=== PATIENT | female | born 1960 | race Two or more races ===

== ENCOUNTER 2024-09-22 08:09 | Outpatient (REF) | payer MEDICARE, MEDICAID, SELFPAY ==
--- NOTE | ~2024-09-22 | XR_ITS ---
CLINICAL HISTORY: E66.9 - Obesity, unspecified 2 view chest x-ray Comparison: None Findings: The lungs are clear. Heart size is normal. Right superior mediastinal convexity is present. No acute fracture. IMPRESSION: Right superior mediastinal convexity, which may be secondary to aortic aneurysm. Recommend CT chest for further evaluation. This document has been electronically signed by: Nayla Duarte on 09/26/2024 09:18:48
[2024-09-22 08:58] LABS: MANUAL DIFF FLAG NO
--- NOTE | 2024-09-22 09:10 | ECG_ITS ---
Test Reason : OBS Blood Pressure : */* mmHG Vent. Rate : 76 BPM Atrial Rate : 76 BPM P-R Int : 170 ms QRS Dur : 86 ms QT Int : 364 ms P-R-T Axes : 37 51 69 degrees QTcB Int : 409 ms Normal sinus rhythm Normal ECG No previous ECGs available Referred By: Wai Huang Electronically Signed By: Iban Vasques
[2024-09-22 09:12] LABS: Basophils Absolute Auto 0.1 X10*3/uL (0.0-0.2); Basophils Percent Auto 1.1 % (0-2); Eosinophils Absolute Auto 0.2 X10*3/uL (0.0-0.4); Eosinophils Percent Auto 2.3 % (0-4); Hematocrit 42.4 % (37.0-47.0); Hemoglobin 14.2 g/dl (12.0-16.0); Imm Gran Abs Auto 0.03 X10*3/uL (0.00-0.03); Imm Gran Pct Auto 0.4 % (0.0-0.4); Lymphocytes Absolute Auto 2.6 X10*3/uL (1.2-4.9); Lymphocytes Percent Auto 32.1 % (20-40); Mean Corpuscular HGB Conc 33.5 g/dl (31.0-35.0); Mean Corpuscular Volume 86.7 fL (80.0-98.0); Monocytes Absolute Auto 0.4 X10*3/uL (0.1-1.2); Monocytes Percent Auto 4.9 % (2-11); Neutrophils Absolute Auto 4.8 x10*3/uL (2.0-8.3); Neutrophils Percent Auto 59.2 % (45-73); Platelet Count 292 X10*3/uL (160-400); Red Blood Count 4.89 X10*6/uL (4.20-5.50); Red Cell Distribution Width 12.9 % (11.0-16.0); White Blood Count 8.2 X10*3/uL (4.8-10.8)
[2024-09-22 09:17] LABS: Estimated Average Glucose 126 mg/dL; Hemoglobin A1C 156.8877 umol/L; Total Hemoglobin (HGBA1C) 3758.2814 umol/L
[2024-09-22 09:52] LABS: Alanine Aminotransferase 48 U/L (0-31); Anion Gap 14 (12-20); Aspartate Amino Transferase 42 U/L (5-31); Bilirubin Total 0.5 mg/dL (0.0-1.0); Blood Urea Nitrogen 20 mg/dL (9-16); C Reactive Protein 1.12 mg/dL (< or = 0.50); Calcium 9.7 mg/dL (8.4-10.2); Carbon Dioxide 27 mmol/L (22-29); Chloride 102 mmol/L (96-108); Cholesterol 169 mg/dL (<200); Estimated Glomerular Filt Rate > 60; Glucose Random 178 mg/dL (60-115); HDL Cholesterol 45 mg/dL (>40); Iron 51 mcg/dL (30-160); LDL Cholesterol Calculated 103 mg/dL (<100); Percent Iron Saturation 18 % (15-50); Sodium 139 mmol/L (135-145); Total Iron Binding Capacity 284 mcg/dL (228-428); Total Protein 7.8 g/dL (6.5-8.0); Triglycerides 107 mg/dL (<150); Unsaturated Iron Binding 233 ug/dL
[2024-09-22 10:09] LABS: Alkaline Phosphatase 96 U/L (39-117); Vitamin B12 721 pg/mL (200-900)
[2024-09-22 10:20] LABS: Ferritin 101 ng/mL (10-250); TSH reflex Free T4 3.93 uIU/mL (0.32-4.0); Vitamin D 25-OH Total 36.2 ng/mL (>30)
[2024-09-22 10:52] LABS: Insulin 184 uU/mL (2-29)
[2024-09-25 17:23] LABS: Zinc 68 mcg/dL (60-130)
[2024-09-25 18:33] LABS: Vitamin A 45 mcg/dL (38-98)
[2024-09-27 16:28] LABS: Vitamin B1 13 nmol/L (8-30)
== END 2024-09-22 08:10 | disposition home or self-care (01) ==
LOC: HO.XRAY 08:09
PROVIDERS: Visit Provider Surgery
DX: E66.9 Obesity, unspecified (principal); G47.30 Sleep apnea, unspecified; Z68.35 Body mass index [BMI] 35.0-35.9, adult; E11.9 Type 2 diabetes mellitus without complications; I10 Essential (primary) hypertension; K21.9 Gastro-esophageal reflux disease without esophagitis; R91.8 Other nonspecific abnormal finding of lung field
CPT/HCPCS: 36415; 71046; 80053; 80061; 82306; 82607; 82728; 82746; 83036; 83525; 83540; 84425; 84443; 84590; 84630; 85025; 86140; 93005

== ENCOUNTER 2024-09-22 08:09 | Outpatient (AMB) | payer MEDICARE, MEDICAID, SELFPAY ==
--- NOTE | 2024-09-21 16:31 | MHC.OFFVISWM ---
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30am I spent 55 minutes speaking with the patient on the phone plus an additional 5 minutes reviewing and updating records for a total of 60 minutes HPI Comments Details: Previous weight loss efforts: self diet Wakes up: 11am, Sleeps: 12am Breakfast: yes Lunch: yes Dinner: yes Snacks: none Exercise: has home treadmill Beverages: Coffee: 1 cup/d (sugar), tea: yes, soda: none, juice: yes, ETOH: none PFSH Medical History (Updated 09/21/24 @ 18:13 by Wai Huang MD) GERD (gastroesophageal reflux disease) Hypertension Non-insulin dependent type 2 diabetes mellitus BMI 35.0-35.9,adult Sleep apnea treated with continuous positive airway pressure (CPAP) Obesity HX: breast cancer Surgical History (Updated 09/21/24 @ 16:56 by Wai Huang MD) History of partial mastectomy of left breast History of hysterectomy History of laparoscopic cholecystectomy Hx of colonoscopy History of esophagogastroduodenoscopy (EGD) Family History (Updated 09/02/24 @ 10:30 by MARIELLA Douglas) Family/Other Cancer of breast HTN (hypertension) Mother Diabetes HTN (hypertension) Father Diabetes HTN (hypertension) Telehealth Telehealth Telehealth Platform: Telephone Location of provider rendering services: practice address Location of patient: address on file Patient Identification confirmed using: Name, : Yes Telehealth method: voice only Patient verbally consented to treatment: Yes Patient verbally consented to billing insurance company: Yes Patient informed of any privacy concerns related to visit: Yes Minutes spent on Phone/Video with Pt.: 60 Assessment & Plan Assessment & Plan (1) Obesity: Code(s): E66.9 - Obesity, unspecified Category: Medical Qualifiers: Body mass index: BMI 35.0-35.9 Obesity classification: adult class 2 (BMI 35 - 39.9) Obesity type: due to excess calories Serious obesity comorbidity presence: with serious comorbidity Qualified Code(s): E66.812 - Obesity, class 2; E66.01 - Morbid (severe) obesity due to excess calories; Z68.35 - Body mass index [BMI] 35.0-35.9, adult Plan: 1. Plan for lap sleeve gastrectomy. If diaphragmatic or ventral hernias are present at time of surgery, these will be repaired laparoscopically as well. I emphasized the importance of close follow-up, adherence to instructions and good communication. The surgery does not replace the need to change your lifestlyle which is the cause of the obesity problem. The surgery provides the motivation to try again to change your lifestyle, it reduces the appetite and make the transition to a better lifestyle easier and doubles the amount of weight you would lose compared to doing the lifestyle change without the surgery. You will need to be on a liquid diet with protein shakes for 2 weeks before surgery to maximize weight loss and boost your nutritional status to recover better from surgery and also for the first two weeks after surgery to let the stomach heal before we introduce other foods. After the first 2 weeks we will introduce protein bars and soft foods like scrambled eggs, cottage cheese and yogurt and after the 6th week will introduce meat, fish and cooked vegetables in small amounts. Over time you should be able to eat everything in small amounts. Side effects like nausea, vomiting, heartburn or abdominal pain are not common in the practice unless you are not following in the practice. This operation requires lifetime commitment to following in our practice and communication with me. You will much less weight and experience side effects if you don?t communicate or not following in the practice. Complications are rare and in our practice is about 1/10 of the national average. However, you can develop bleeding that may require transfusion (hasn?t happened for year in the practice), you may from complications (we did not have any deaths in the practice) and infections. Infections are usually a result of breakdown in communication or not understanding or following directions correctly. They are difficult to treat, they can happen during the first 6 weeks, they may require to be in the hospital for weeks or even months, not being able to eat by mouth and you may have drains and surgeries to try and correct the issue. Other risks and complications include possible conversion to an open procedure, leaks, small bowel obstruction, blood clots, cardiac, or pulmonary complications, as fpc complications such as ulcers, insufficient weight loss and vitamin deficiencies. 2. Please buy the body composition scale we discussed and send me weight measurements as soon as possible and then once a week. Always include your diet and exercise plan. Alternatively come weekly at the office for weight checks and send me the measurements. 3. The best choice would be to purchase a stationary bike, elliptical or treadmill at home that can track calories. Let me know if you do so I can give you an exercise plan. 4. To be scheduled for EGD to assess the stomach's anatomy and GERD history The possibility of biopsies was discussed. Patient needs to avoid use of NSAIDs and aspirin for 1 week prior to EGD. You must be on liquids only the day before your endoscopy. Risks of perforation and bleeding was discussed with the patient. This will be an outpatient procedure with IV sedation. Orders: Orders Insulin Today E11.9 - Type 2 diabetes mellitus without complications, E66.9 - Obesity, unspecified, G47.30 - Sleep apnea, unspecified, I10 - Essential (primary) hypertension, K21.9 - Gastro-esophageal reflux disease without esophagitis, Z68.35 - Body mass index [BMI] 35.0-35.9, adult Complete Blood Count Auto Diff Today E11.9 - Type 2 diabetes mellitus without complications, E66.9 - Obesity, unspecified, G47.30 - Sleep apnea, unspecified, I10 - Essential (primary) hypertension, K21.9 - Gastro-esophageal reflux disease without esophagitis, Z68.35 - Body mass index [BMI] 35.0-35.9, adult Zinc Today E11.9 - Type 2 diabetes mellitus without complications, E66.9 - Obesity, unspecified, G47.30 - Sleep apnea, unspecified, I10 - Essential (primary) hypertension, K21.9 - Gastro-esophageal reflux disease without esophagitis, Z68.35 - Body mass index [BMI] 35.0-35.9, adult C Reactive Protein Today E11.9 - Type 2 diabetes mellitus without complications, E66.9 - Obesity, unspecified, G47.30 - Sleep apnea, unspecified, I10 - Essential (primary) hypertension, K21.9 - Gastro-esophageal reflux disease without esophagitis, Z68.35 - Body mass index [BMI] 35.0-35.9, adult Vitamin B1 Today E11.9 - Type 2 diabetes mellitus without complications, E66.9 - Obesity, unspecified, G47.30 - Sleep apnea, unspecified, I10 - Essential (primary) hypertension, K21.9 - Gastro-esophageal reflux disease without esophagitis, Z68.35 - Body mass index [BMI] 35.0-35.9, adult US abdomen comp w elastography 09/21/24 E11.9 - Type 2 diabetes mellitus without complications, E66.9 - Obesity, unspecified, G47.30 - Sleep apnea, unspecified, I10 - Essential (primary) hypertension, K21.9 - Gastro-esophageal reflux disease without esophagitis, Z68.35 - Body mass index [BMI] 35.0-35.9, adult ECG 12 lead EKG Today E11.9 - Type 2 diabetes mellitus without complications, E66.9 - Obesity, unspecified, G47.30 - Sleep apnea, unspecified, I10 - Essential (primary) hypertension, K21.9 - Gastro-esophageal reflux disease without esophagitis, Z68.35 - Body mass index [BMI] 35.0-35.9, adult Hemoglobin A1c Today E11.9 - Type 2 diabetes mellitus without complications, E66.9 - Obesity, unspecified, G47.30 - Sleep apnea, unspecified, I10 - Essential (primary) hypertension, K21.9 - Gastro-esophageal reflux disease without esophagitis, Z68.35 - Body mass index [BMI] 35.0-35.9, adult H Pylori Breath Test 09/21/24 E11.9 - Type 2 diabetes mellitus without complications, E66.9 - Obesity, unspecified, G47.30 - Sleep apnea, unspecified, I10 - Essential (primary) hypertension, K21.9 - Gastro-esophageal reflux disease without esophagitis, Z68.35 - Body mass index [BMI] 35.0-35.9, adult Lipid Panel Today E11.9 - Type 2 diabetes mellitus without complications, E66.9 - Obesity, unspecified, G47.30 - Sleep apnea, unspecified, I10 - Essential (primary) hypertension, K21.9 - Gastro-esophageal reflux disease without esophagitis, Z68.35 - Body mass index [BMI] 35.0-35.9, adult IRON PROFILE Today E11.9 - Type 2 diabetes mellitus without complications, E66.9 - Obesity, unspecified, G47.30 - Sleep apnea, unspecified, I10 - Essential (primary) hypertension, K21.9 - Gastro-esophageal reflux disease without esophagitis, Z68.35 - Body mass index [BMI] 35.0-35.9, adult Comprehensive Met. Panel Today E11.9 - Type 2 diabetes mellitus without complications, E66.9 - Obesity, unspecified, G47.30 - Sleep apnea, unspecified, I10 - Essential (primary) hypertension, K21.9 - Gastro-esophageal reflux disease without esophagitis, Z68.35 - Body mass index [BMI] 35.0-35.9, adult Vitamin B12 and Folate Today E11.9 - Type 2 diabetes mellitus without complications, E66.9 - Obesity, unspecified, G47.30 - Sleep apnea, unspecified, I10 - Essential (primary) hypertension, K21.9 - Gastro-esophageal reflux disease without esophagitis, Z68.35 - Body mass index [BMI] 35.0-35.9, adult Vitamin A Today E11.9 - Type 2 diabetes mellitus without complications, E66.9 - Obesity, unspecified, G47.30 - Sleep apnea, unspecified, I10 - Essential (primary) hypertension, K21.9 - Gastro-esophageal reflux disease without esophagitis, Z68.35 - Body mass index [BMI] 35.0-35.9, adult TSH reflex Free T4 Today E11.9 - Type 2 diabetes mellitus without complications, E66.9 - Obesity, unspecified, G47.30 - Sleep apnea, unspecified, I10 - Essential (primary) hypertension, K21.9 - Gastro-esophageal reflux disease without esophagitis, Z68.35 - Body mass index [BMI] 35.0-35.9, adult Ferritin Today E11.9 - Type 2 diabetes mellitus without complications, E66.9 - Obesity, unspecified, G47.30 - Sleep apnea, unspecified, I10 - Essential (primary) hypertension, K21.9 - Gastro-esophageal reflux disease without esophagitis, Z68.35 - Body mass index [BMI] 35.0-35.9, adult Vitamin D 25-OH Total Today E11.9 - Type 2 diabetes mellitus without complications, E66.9 - Obesity, unspecified, G47.30 - Sleep apnea, unspecified, I10 - Essential (primary) hypertension, K21.9 - Gastro-esophageal reflux disease without esophagitis, Z68.35 - Body mass index [BMI] 35.0-35.9, adult XR chest 2V Today E11.9 - Type 2 diabetes mellitus without complications, E66.9 - Obesity, unspecified, G47.30 - Sleep apnea, unspecified, I10 - Essential (primary) hypertension, K21.9 - Gastro-esophageal reflux disease without esophagitis, Z68.35 - Body mass index [BMI] 35.0-35.9, adult FL upper GI w air 09/21/24 E11.9 - Type 2 diabetes mellitus without complications, E66.9 - Obesity, unspecified, G47.30 - Sleep apnea, unspecified, I10 - Essential (primary) hypertension, K21.9 - Gastro-esophageal reflux disease without esophagitis, Z68.35 - Body mass index [BMI] 35.0-35.9, adult Referrals Behavioral Health Referral E11.9 - Type 2 diabetes mellitus without complications, E66.9 - Obesity, unspecified, G47.30 - Sleep apnea, unspecified, I10 - Essential (primary) hypertension, K21.9 - Gastro-esophageal reflux disease without esophagitis, Z68.35 - Body mass index [BMI] 35.0-35.9, adult Nutrition/Dietitian Referral E11.9 - Type 2 diabetes mellitus without complications, E66.9 - Obesity, unspecified, G47.30 - Sleep apnea, unspecified, I10 - Essential (primary) hypertension, K21.9 - Gastro-esophageal reflux disease without esophagitis, Z68.35 - Body mass index [BMI] 35.0-35.9, adult
[2024-09-22 09:54] VITALS: BMI 35.2
== END 2024-09-22 10:02 | disposition home or self-care (01) ==
LOC: HO.HBS 08:09
PROVIDERS: Visit Provider Surgery
DX: E66.01 Morbid (severe) obesity due to excess calories (principal); E66.812 Obesity, class 2; Z68.35 Body mass index [BMI] 35.0-35.9, adult
CPT/HCPCS: 99205

== ENCOUNTER → 2024-09-22 08:56 | Outpatient (BNV) | payer MEDICARE, MEDICAID, SELFPAY | PROVIDERS: Visit Provider Radiology Vascular & Interventional Radiology | DX: J98.59 Other diseases of mediastinum, not elsewhere classified (principal) | CPT/HCPCS: 71046 ==

== ENCOUNTER → 2024-09-22 09:10 | Outpatient (BNV) | payer MEDICARE, MEDICAID, SELFPAY | PROVIDERS: Visit Provider Internal Medicine Cardiovascular Disease | DX: K56.609 Unspecified intestinal obstruction, unspecified as to partial versus complete obstruction (principal) | CPT/HCPCS: 93010 ==

== ENCOUNTER 2024-10-02 11:25 | Outpatient (AMB) | payer MEDICARE, MEDICAID, SELFPAY ==
--- NOTE | 2024-10-02 11:15 | MHC.WMTHER ---
Intake Intake Visit Reasons: VIDEO BH Intake Allergies No Known Allergies Allergy (Verified 09/22/24 09:56) [facility] Medical History (Updated 09/26/24 @ 10:24 by ASIA Pettit) GERD (gastroesophageal reflux disease) Hypertension Non-insulin dependent type 2 diabetes mellitus BMI 35.0-35.9,adult Sleep apnea treated with continuous positive airway pressure (CPAP) Obesity HX: breast cancer Surgical History (Updated 09/21/24 @ 16:56 by Wai Huang MD) History of partial mastectomy of left breast History of hysterectomy History of laparoscopic cholecystectomy Hx of colonoscopy History of esophagogastroduodenoscopy (EGD) Family History (Updated 09/02/24 @ 10:30 by MARIELLA Douglas) Family/Other Cancer of breast HTN (hypertension) Mother Diabetes HTN (hypertension) Father Diabetes HTN (hypertension) Behavioral Health Assessment Weight Management Therapy Therapy Notes Details The patient is a 64-year-old female presenting for initial visit to start the behavioral health assessment as part of the surgical weight loss program. She was referred to the program by her son, who successfully underwent bariatric surgery last year. The patient had previously expressed interest in participating but was delayed due to a long waitlist. Presenting Concerns Referral Source WMP-Provider. Dr Griffin Reason for referral Completion of behavioral health assessment as part of process for weight-loss surgery. Precipitating Event Obesity. Living Situation Current Living Situation Relative's/Guardian's Jadyn At risk of losing current housing? No Satisfied with current living situation? Yes Comments PT lives with her son and 18 y/o grandson at her son's home. Food/Weight/Diet Expectations of change PT started the program on at 218Lbs. She would like to be around 140- 150 lbs. She us currently doing 2 bars and 2 meals a day, daily exercise using a treadmill and communicating with the surgeon on Fridays. Social History Family history and relationship PT was 20 years ago. She has 3 adult children and 6 grandchildren. Parents are , she has 2 siblings alive, and 3 . PT currently lives with her son since . PT reports good family relationships. 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 Developmental history and status None reported. Currently WNL. Social support Her son and grandson. Community support None. Druze/Spirituality Jewish, attends restoration every Sunday. Cultural/Ethnic information [place]. She just moved to [place] in June/2024, her son wanted to bring her to improve her quality of life. PT is Icelandic-speaking. Legal Involvement and History Current or historical involvement with the legal system? None reported. 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 No Interested in further educational program? Yes Educational Interests/Skills PT is doing [employer] classess. Employment Employment Status Retired (disabled since age 51.) Wants help to find employment? No Meaningful activities Gardening, watching videos on social media. Financial Situation Describe current financial situation Comfortable Financial assistance? Food [place], SSI and Disability Service Service? No Mental Health and Addiction Treatment Current/Past substance abuse? No Comments Alcohol: She used to drink couple times at month. Lately only special events, no more than 2 beers. Cigarettes/Tobacco: None. Cannabis/Edibles: None. Current/Past addictive behavior concerns? No (She uses scratch tickets 1-2 times at week. No more than $5 each. ) Psychiatric history Went to counseling once due to insomnia, but she had Sleep apnea the therapy didn't work for that. Denies ever been hospitalized for MH. Also reported no history of safety concerns around self-harm/other-harm. Medical and Physical Health Summary Additional Medical History not covered in history Hx of breast cancer (left breast), in remission 5 years ago with medication. Has been without medication for 6 months. Diagnosed with Fibromyalgia and takes Cymbalta 60mg, 1 x day. Sexual History concerns None reported Physical exam in the last year? Yes (PCP at [facility] - Last physical .) Pain Screening Current pain? No Pain in the last few months? No Medications Is the patient compliant with medications? Yes Does the patient have Goldberg Guardian in place? Not applicable Does the patient use complimentary health approaches? No Trauma/Abuse History History of trauma? No Questionnaires PHQ-9 Over the last 2 weeks, how often have you been bothered by any of the following problems? 1. Little interest or pleasure in doing things: more than half the days 2. Feeling down, depressed, or hopeless: not at all 3. Trouble falling or staying asleep, or sleeping too much: nearly every day 4. Feeling tired or having little energy: nearly every day 5. Poor appetite or overeating: nearly every day 6. Feeling bad about yourself - or that you are a failure or have let yourself or your family down: several days 7. Trouble concentrating on things, such as reading the newspaper or watching television: several days 8. Moving or speaking so slowly that other people could have noticed. Or the opposite - being so fidgety or restless that you have been moving around a lot more than usual: more than half the days 9. Thoughts that you would be better off or of hurting yourself in some way: not at all Total score: 15 Depression Screening Interpretation: Positive (From new PT pack scanned on 09/30/24) Depression Screening Done: Yes Source: Developed by Drs. Josue Merchant, Shruthi Taylor, Bobby Lan and colleagues, with an educational pablo from [employer]. Assessment & Plan Assessment & Plan (1) Adjustment disorder: Code(s): F43.20 - Adjustment disorder, unspecified (2) Inappropriate diet or eating habits: Code(s): Z72.4 - Inappropriate diet and eating habits (3) Pre-bariatric surgery psychological evaluation: Code(s): Z71.89 - Other specified counseling Plan The patient is not yet cleared, as the behavioral health assessment is still in progress. She will return in 2 weeks to continue the evaluation. At the next visit, the Binge Eating Scale (BES) will be reviewed, and a new PHQ-9 will be administered. Next natalya: 10/15/2024 at 9:00am, Telehealth Telehealth Telehealth Telehealth Platform: [facility] Location of provider rendering services: other Location of patient: address on file Patient Identification confirmed using: Name, : Yes Telehealth method: voice only Patient verbally consented to treatment: Yes Patient verbally consented to billing insurance company: Yes Patient informed of any privacy concerns related to visit: Yes Minutes spent on Phone/Video with Pt.: 50 Coding Level of Care Code New Pt Tele Psy Diag Eval (22301) Patient Type New Diagnoses Adjustment disorder F43.20 Inappropriate diet or eating habits Z72.4 Pre-bariatric surgery psychological evaluation Z71.89 Time Spent (min) 50
== END 2024-10-02 12:22 | disposition home or self-care (01) ==
LOC: HO.HBST 11:25
PROVIDERS: Visit Provider Counselor Mental Health
DX: F43.20 Adjustment disorder, unspecified (principal); Z72.4 Inappropriate diet and eating habits; Z71.89 Other specified counseling
CPT/HCPCS: 90791

== ENCOUNTER → 2024-10-02 11:25 | Outpatient (BNVA) | payer MEDICARE, MEDICAID, SELFPAY | PROVIDERS: Visit Provider Counselor Mental Health ==

== ENCOUNTER 2024-10-10 07:36 | Day surgery (SDC) | payer MEDICARE, MEDICAID, SELFPAY ==
[2024-10-08 08:50] VITALS: BMI 35.2
--- NOTE | 2024-10-08 12:31 | HO.ANESPROP2 ---
Documented by User: Dayan Mendes NP 10/08/24 12:31 HPI - Anesthesia Eval Consult details Narrative: 64yo F for Upper Endoscopy PMFSH Active Problems Active Problems: All Active Problems Abnormal chest x-ray (Acute) GERD (gastroesophageal reflux disease) (Acute) Hypertension (Acute) Non-insulin dependent type 2 diabetes mellitus (Acute) BMI 35.0-35.9,adult (Acute) Sleep apnea treated with continuous positive airway pressure (CPAP) (Acute) Obesity (Acute) Past Medical History Medical History GERD (gastroesophageal reflux disease) Hypertension Non-insulin dependent type 2 diabetes mellitus BMI 35.0-35.9,adult Sleep apnea treated with continuous positive airway pressure (CPAP) Obesity HX: breast cancer Family History Family History (Updated 09/02/24 @ 10:30 by MARIELLA Douglas) Family/Other Cancer of breast HTN (hypertension) Mother Diabetes HTN (hypertension) Father Diabetes HTN (hypertension) Surgical History Surgical History History of partial mastectomy of left breast History of hysterectomy History of laparoscopic cholecystectomy Hx of colonoscopy History of esophagogastroduodenoscopy (EGD) Social History Social History Are you a primary home health care respiratory therapist to a significant other at home: No Do you presently have visiting nurse or other home services: No Patient Tobacco Use Status: Never used Tobacco Use of substances other than those prescribed or required for medical reasons: No Have you been hit, kicked, punched, or otherwise hurt by someone within the past year? If so, by whom?: No Are you DNR?: No Advance Directives: No Advance Directives Information Provided: Yes Patient : No Meds Allergies Allergy/AdvReac Type Severity Reaction Status Date / Time No Known Allergies Allergy Verified 10/10/24 08:02 Home Medications ?Medication ?Instructions ?Recorded ?Confirmed ?Last Taken ?Type famotidine 20 mg tablet 20 mg PO BEDTIME 09/02/24 09/22/24 Unknown History fluticasone furoate 50 inhalation 09/02/24 09/22/24 Unknown History mcg-vilanterol 25 mcg/dose inhalation powder (Breo Ellipta) irbesartan 300 mg tablet 300 mg PO DAILY 09/02/24 10/10/24 Unknown History metformin 500 mg tablet 500 mg PO BID 09/02/24 10/10/24 Unknown History duloxetine 60 mg capsule,delayed 60 mg PO DAILY 10/10/24 10/10/24 Unknown History release (Cymbalta) Exam Height,Weight and Vital Signs: Height 5 ft 6 in Weight 98.883 kg Narrative Narrative: EKG 08/2024 Vent. Rate : 76 BPM Atrial Rate : 76 BPM P-R Int : 170 ms QRS Dur : 86 ms QT Int : 364 ms P-R-T Axes : 37 51 69 degrees QTcB Int : 409 ms Normal sinus rhythm Normal ECG No previous ECGs available Assessment and Plan Assessment Anesthesia Assessment: Chart Reviewed Documented by User: Chelsea Fontana MD 10/10/24 08:22 [facility] Past Medical History Medical History GERD (gastroesophageal reflux disease) Hypertension Non-insulin dependent type 2 diabetes mellitus BMI 35.0-35.9,adult Sleep apnea treated with continuous positive airway pressure (CPAP) Obesity HX: breast cancer Family History Family History (Updated 09/02/24 @ 10:30 by MARIELLA Douglas) Family/Other Cancer of breast HTN (hypertension) Mother Diabetes HTN (hypertension) Father Diabetes HTN (hypertension) Family history of problems with anesthesia: No Surgical History Surgical History History of partial mastectomy of left breast History of hysterectomy History of laparoscopic cholecystectomy Hx of colonoscopy History of esophagogastroduodenoscopy (EGD) History of Problems with Anesthesia: No Social History Social History Are you a primary home health care respiratory therapist to a significant other at home: No Do you presently have visiting nurse or other home services: No Patient Tobacco Use Status: Never used Tobacco Use of substances other than those prescribed or required for medical reasons: No Have you been hit, kicked, punched, or otherwise hurt by someone within the past year? If so, by whom?: No Are you DNR?: No Advance Directives: No Advance Directives Information Provided: Yes Patient : No Meds Allergies Allergy/AdvReac Type Severity Reaction Status Date / Time No Known Allergies Allergy Verified 10/10/24 08:02 Home Medications ?Medication ?Instructions ?Recorded ?Confirmed ?Last Taken ?Type famotidine 20 mg tablet 20 mg PO BEDTIME 09/02/24 09/22/24 Unknown History fluticasone furoate 50 inhalation 09/02/24 09/22/24 Unknown History mcg-vilanterol 25 mcg/dose inhalation powder (Breo Ellipta) irbesartan 300 mg tablet 300 mg PO DAILY 09/02/24 10/10/24 Unknown History metformin 500 mg tablet 500 mg PO BID 09/02/24 10/10/24 Unknown History duloxetine 60 mg capsule,delayed 60 mg PO DAILY 10/10/24 10/10/24 Unknown History release (Cymbalta) Exam Airway Mallampati Class: II TM Dist: >3cm Neck ROM: Full Denture: Upper Heart: rrr Lungs: cta Assessment and Plan Assessment Anesthesia Assessment: Anesthesia Plan Discussed Final Anesthetic Review Family History of Problems with Anesthesia: No History of Problems with Anesthesia: No NPO: Yes ASA Class: III Final Preanesthetic Review: No Changes in Pt Med Stat, Meds/Allgs Chart Reviewed and Consent Obtained/Reviewed Patient Risk: Intermediate Procedure Risk: Intermediate Anesthetic Plan Anesthetic Plan: MAC: Disposition: Standard PACU
[2024-10-10 08:04] VITALS: BP 130/79; PULSE 81; RESP 14; TEMP 36.4; O2SAT 98; BMI 35.6
[2024-10-10 08:17] LABS: Glucose, Whole Blood 116 mg/dL (60-115)
[2024-10-10] MEDS: Lactated Ringers 1,000 ML 80 ML IVCONT (08:18)
--- NOTE | 2024-10-10 09:17 | MHC.SHP ---
Pre-Procedural Eval Section A - 24 Hr Update-Section A only Date of Service: 10/10/24 The patient is an INPATIENT: No The patient has been examined within 24 hours of the surgical procedure. The History & Physical has been completed within 30 days and I have reviewed it.: Yes Section B - Complete if H&P > 30 days Chief Complaint: Obesity, unspecified Details of Present Illness: GERD Relevant Family History (Specify if Yes): No Relevant Social History: None Present Medications: None Medical History: No relevant PMH History of Previous Operations: No relevant previous surgery Allergies: Allergies Allergy/AdvReac Type Severity Reaction Status Date / Time No Known Allergies Allergy Verified 10/10/24 08:02 Review of Systems Sugical H&P ROS: Negative: Constitution, Cardiovascular, Respiratory, Neurological, Psychiatric, Hem-Onc, Allergic/Immunologic, Gastrointestinal, Genitourinary, Musculoskeletal, Integumentary, Endocrine and Eyes/Ears/Nose/Throat Exam Surgical H&P Exam: Normal: HEENT, Normal: Heart, Normal: Lungs, Normal: Extremities, Normal: Abdomen, Normal: Skin and Normal: Neurological Plan Diagnosis/Plan: Unchanged (EGD to assess etiology of GERD. Risks of bleeding and perforation were discussed with the patient and she is in agreement with the plan.) I have reviewed the history and physical and performed a pertinent physical examination on my patient. No changes have occurred unless specified. Time Spent With Patient Time: Total time managing care of this patient today ____ minutes.
--- NOTE | 2024-10-10 09:21 | P.BOP_ITS ---
Brief Operative Note Date of Service: 10/10/24 Pre-op diagnosis: GERD Post-op diagnosis: same Procedure: PROCEDURE DATE: 10/10/2024 PREOPERATIVE DIAGNOSIS: GERD POSTOPERATIVE DIAGNOSIS: ?Same as above. Normal PROCEDURE: [id number] with biopsies Surgeon: Muriel Huang M.D.. Ph.D. Advanced Research Programs Director: None ? Anesthesia: IV sedation Estimated blood loss: ?Minimal FINDINGS AND PROCEDURE: ? OPERATIVE INDICATIONS: ?The patient is a 64 year old female known to me who is interested in bariatric surgery. The patient has GERD. Based on this information I recommended an upper endoscopy to evaluate the patient's symptoms. Risks and complications of the surgery were discussed with the patient in advance particularly the possibility of perforation or bleeding that may require surgical intervention. The patient understood the risks and was in agreement with the plan. ? PROCEDURE: After informed consent was obtained by the patient, the patient was ?transferred to the Operating Room and was placed in the supine position.? After successful induction of IV sedation, a mouth block was inserted and the patient was placed in the left lateral decubitus position. An upper endoscopy was performed next, the oropharynx and esophagus appeared within the normal limits. There was no hiatal hernia. The z-line was smooth. Two biopsies were obtained from the distal esophagus 2-3 cm proximal to the GE junction and two additional biopsies from the GE junction. The stomach was entered and it appeared to be of normal size. There was no gastritis. There was no stricture or ulcer. A biopsy was obtained from the gastric fundus and the antrum. No significant bleeding was noted from any of the biopsy sites. Retroflexion of the scope confirmed a normal GE junction. The scope was then advanced into the duodenum which appeared to be normal as well. At that point the duodenum ?and the stomach were decompressed and the scope was withdrawn from the patient's mouth. The patient extubated and was transferred in stable condition to the Recovery Room for further care. I was present and performed all steps of the procedure. There were no residents to assist with this case. Matt Huang M.D., Ph.D. Surgeon: Wai Huang MD Anesthesia: MAC Was an Advanced Research Programs Director used for this Procedure?: No Estimated blood loss (mL): 0 IV fluids (mL): 400 Urine output (mL): 0 (No [place] to record output) Pathology: other (1) antrum x1, 2) fundus x1, 3) GE junction x2, 4) distal esophagus x2) Condition: stable Disposition: PACU
[2024-10-10 09:40] VITALS: BP 106/77; PULSE 78; RESP 16; TEMP 36.8; O2SAT 92
[2024-10-10 09:55] VITALS: BP 117/76; PULSE 75; RESP 16; TEMP 36.8; O2SAT 95
== END 2024-10-10 10:15 | disposition home or self-care (01) ==
PROVIDERS: Visit Provider Surgery
PROC: 0DJ08ZZ Inspection of Upper Intestinal Tract, Via Natural or Artificial Opening Endoscopic (ICD-10-PCS; CPT 43235; principal; 2024-10-10 09:00)
DX: K21.9 Gastro-esophageal reflux disease without esophagitis (principal); E66.01 Morbid (severe) obesity due to excess calories; Z68.35 Body mass index [BMI] 35.0-35.9, adult; E11.9 Type 2 diabetes mellitus without complications; I10 Essential (primary) hypertension; G47.30 Sleep apnea, unspecified; Z79.51 Long term (current) use of inhaled steroids; Z79.84 Long term (current) use of oral hypoglycemic drugs; Z79.899 Other long term (current) drug therapy; Z99.89 Dependence on other enabling machines and devices; Z85.3 Personal history of malignant neoplasm of breast; Z90.710 Acquired absence of both cervix and uterus; Z90.12 Acquired absence of left breast and nipple; Z90.49 Acquired absence of other specified parts of digestive tract
CPT/HCPCS: 43239; 82947; 88305; 88313; 88342; J2003; J2704

== ENCOUNTER → 2024-10-10 07:36 | Outpatient (BNV) | payer MEDICARE, MEDICAID, SELFPAY | PROVIDERS: Visit Provider Surgery | DX: K21.9 Gastro-esophageal reflux disease without esophagitis (principal) | CPT/HCPCS: 43239 ==

== ENCOUNTER 2024-10-15 09:22 | Outpatient (AMB) | payer MEDICARE, MEDICAID, SELFPAY ==
--- NOTE | 2024-10-15 09:15 | A.OFFWM_ITS ---
Intake Intake Visit Reasons: VIDEO Intake Part 2 Allergies No Known Allergies Allergy (Verified 10/10/24 08:02) [facility] Medical History GERD (gastroesophageal reflux disease) Hypertension Non-insulin dependent type 2 diabetes mellitus BMI 35.0-35.9,adult Sleep apnea treated with continuous positive airway pressure (CPAP) Obesity HX: breast cancer Surgical History History of partial mastectomy of left breast History of hysterectomy History of laparoscopic cholecystectomy Hx of colonoscopy History of esophagogastroduodenoscopy (EGD) Family History (Updated 09/02/24 @ 10:30 by MARIELLA Douglas) Family/Other Cancer of breast HTN (hypertension) Mother Diabetes HTN (hypertension) Father Diabetes HTN (hypertension) Social History Are you a primary career development director to a significant other at home: No Do you presently have visiting nurse or other home services: No Patient Tobacco Use Status: Never used Tobacco Behavioral Health Assessment Weight Management Therapy Therapy Notes Details The patient is a 64-year-old female presenting for her second visit to complete the behavioral health assessment as part of the surgical weight loss program. She was referred by her son, who successfully underwent bariatric surgery last year. The patient reported attending counseling once in the past for insomnia; however, she was later diagnosed with sleep apnea, and therapy was not effective in addressing that issue. She denies any history of psychiatric hospitalization or safety concerns, including self-harm or harm to others. There is no reported history of substance use. The patient denies stress-related or emotional eating. Scores on the Binge Eating Scale (BES) indicate a low risk for disordered eating, and PHQ-9 results show no current symptoms of depression. Additionally, the mental status exam is within normal limits, with no evidence of cognitive or emotional impairment. At this time, the patient is cleared from a behavioral health standpoint to proceed with the surgical weight loss program. Presenting Concerns Referral Source WMP-Provider. Dr Griffin Reason for referral Completion of behavioral health assessment as part of process for weight-loss surgery. Precipitating Event Obesity. Living Situation Current Living Situation Relative's/Guardian's Jadyn At risk of losing current housing? No Satisfied with current living situation? Yes Comments PT lives with her son and 18 y/o grandson at her son's home. Food/Weight/Diet Expectations of change The patient began the program on September 21, 2024, at a starting weight of 218 lbs. As of today, July 18, 2024, her most recent recorded weight is 217 lbs. Her target weight range is between 140 and 150 lbs. . Meal plan:2 shakes, 2 bars and 1 meal at day. Exercise plan: treadmill and elliptical, 5 days a week. Scale: yes. Communication with provider: Saturdays. History/Relationship with food The patient reports that her typical eating pattern previously included a large breakfast around 11:00 a.m., followed by a piece of fruit at 1:00 p.m., dinner around 3:00 p.m., and an Ensure nutritional drink around 7:00 p.m. However, she notes that on some days, she would find herself snacking multiple times throughout the day. She observes that on days when she skipped or had an inadequate breakfast, her snacking tended to increase. She denies stress or emotional eating. She reports that during periods of stress or sadness, she experiences a loss of appetite. Example of meals before starting the program: Breakfast: @11 - rice of cream, eggs w/ eggs, and always coffee. Lunch: 1pm, Fruit. Then at @3pm, rice, beans, any type of meat, and salad (lettuce w/ tomatoes, onions, broccoli) Dinner: @7pm, ensure drink. Snacks: Drinks/Liquids: water: 2 bottles. Coffee: 1 cup in the morning with sugar and milk. Soda: none. Juice: orange or apple juice, 2 cups at day. Energy Drinks: none. Alcohol: 1-3 beers every 2 weeks. History/Relationship with weight The patient denies being overweight or obese during childhood. At age 16, her weight was approximately 130 lbs. After marriage, her weight increased to around 145 lbs, and following the of her children in 1983, she maintained a weight between 155?160 lbs for several years. The patient reports that over 15 years ago, her weight remained below 200 lbs. In 2018, she was diagnosed with cancer and began medication and various treatments. Since then, she has experienced significant weight gain and reports difficulty losing weight despite maintaining an active lifestyle and healthy eating habits. Over the past 10 years, her weight has ranged from a low of 217 lbs to a high of 270 lbs. History/Relationship with dieting The patient reports having attempted multiple types of diets and has previously consulted with a baseball winder. She previously engaged in daily walks, follows exercise routines through YouTube videos, and practiced portion control. She notes that when she discontinues regular exercise, she begins to regain weight. Binge Eating Do you frequently eat large amounts of food in short periods of time, not feeling physically hungry? No Do you feel out of control when you eat a large amount of food in a short period of time? No Do you eat large amounts of food rapidly and typically alone? No Night Eating Do you wake up at least once during the night to eat? No If you wake up in the night, do you find that it is necessary to eat something in order to fall back asleep? No Do you have little or no appetite in the morning and feel very hungry in the evening, often overeating between dinner and when you go to bed? No Social History Family history and relationship PT was 20 years ago. She has 3 adult children and 6 grandchildren. Parents are , she has 2 siblings alive, and 3 . PT currently lives with her son since . PT reports good family relationships. Parental/Familial personnel monitor obligations None. Developmental history and status None reported. Currently WNL. Social support Her son and grandson. Community support None. Confucianist/Spirituality Taoism, attends [employer] every Sunday. Cultural/Ethnic information [place]. She just moved to [place] in June/2024, her son wanted to bring her to improve her quality of life. PT is Swedish-speaking. Legal Involvement and History Current or historical involvement with the legal system? None reported. 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 No Interested in further educational program? Yes Educational Interests/Skills PT is doing [employer] class[employer]. Employment Employment Status Retired (disabled since age 51.) Wants help to find employment? No Meaningful activities Gardening, watching videos on social media. Financial Situation Describe current financial situation Comfortable Financial assistance? Food [place], SSI and Disability Service Service? No Mental Health and Addiction Treatment Current/Past substance abuse? No Comments Alcohol: She used to drink couple times at month. Lately only special events, no more than 2 beers. Cigarettes/Tobacco: None. Cannabis/Edibles: None. Current/Past addictive behavior concerns? No (She uses scratch tickets 1-2 times at week. No more than $5 each. ) Psychiatric history Went to counseling once due to insomnia, but she had Sleep apnea the therapy didn't work for that. Denies ever been hospitalized for MH. Also reported no history of safety concerns around self-harm/other-harm. Medical and Physical Health Summary Additional Medical History not covered in history Hx of breast cancer (left breast), in remission 5 years ago with medication. Has been without medication for 6 months. Diagnosed with Fibromyalgia and takes Cymbalta 60mg, 1 x day. Sexual History concerns None reported Physical exam in the last year? Yes (PCP at [facility] - Last physical .) Pain Screening Current pain? No Pain in the last few months? No Medications Is the patient compliant with medications? Yes Does the patient have Goldberg Guardian in place? Not applicable Does the patient use complimentary health approaches? No Trauma/Abuse History History of trauma? No Questionnaires PHQ-9 Over the last 2 weeks, how often have you been bothered by any of the following problems? 1. Little interest or pleasure in doing things: not at all 2. Feeling down, depressed, or hopeless: not at all 3. Trouble falling or staying asleep, or sleeping too much: not at all 4. Feeling tired or having little energy: not at all 5. Poor appetite or overeating: not at all 6. Feeling bad about yourself - or that you are a failure or have let yourself or your family down: not at all 7. Trouble concentrating on things, such as reading the newspaper or watching television: not at all 8. Moving or speaking so slowly that other people could have noticed. Or the opposite - being so fidgety or restless that you have been moving around a lot more than usual: not at all 9. Thoughts that you would be better off or of hurting yourself in some way: not at all Total score: 0 Depression Screening Interpretation: Negative Depression Screening Done: Yes 39157 - PHQ-9 Billing: Yes Source: Developed by Drs. Josue Merchant, Shruthi Taylor, Bobby Lan and colleagues, with an educational pablo from [employer]. Binge Eating Scale Group 1 A. I don't feel self-conscious about my wt. or body size when I'm with others. B. I feel concerned about how I look to others, but it normally does not make me fell disappointed with myself C. I do get self-conscious about my appearance and wt. which makes me feel disappointed in myself. D. I feel very self-conscious about my wt. and frequently I feel intense shame and disgust for myself. I try to avoid social contacts because of my self- consciousness. Response Group 1: C Group 2 A. I don't have any difficulty eating slowly in the proper manner. B. Although I seem to gobble down foods, I don't end up feeling stuffed because of eating to much. C. At times, I tend to eat quickly and then, I feel uncomfortably full afterwards. D. I have the habit of bolting down my food, without really chewing it. When this happens I usually feel uncomfortably stuffed because I've eaten to much. Response Group 2: D Group 3 A. I feel capable to control my eating urges when I want to. B. I feel like I have failed to control my eating more than the average person. C. I feel utterly helpless when it comes to feeling in control of my eating urges. D. Because I feel so helpless about controlling my eating I have become very desperate about trying to get control. Response Group 3: D Group 4 A. I don't have the habit of eating when I'm bored. B. I sometimes eat when I'm bored, but often I'm able to get busy and get my mind off food. C. I have a regular habit of eating when I'm bored, but occasionally, I can use some other activity to get my mind off eating. D. I have a strong habit of eating when I'm bored. Nothing seems to help me breath the habit. Response Group 4: B Group 5 A. I'm usually physically hungry when I eat something. B. Occasionally, I eat something on impulse even though I really am not hungry. C. I have the regular habit of eating foods, that I might not really enjoy, to satisfy a hungry feeling even though physically, I don't need the food. D. Although I'm not physically hungry, I get a hungry feeling in my mouth that only seems to be satisfied when I eat a food, like sandwich, that fills my mouth. Sometimes, when I eat the food to satisfy my mouth hunger, I then spit the food out so I won't gain weight. Response Group 5: C Group 6 A. I don't feel any guilt or self-hate after I overeat. B. After I overeat, occasionally I feel guilt or self-hate. C. Almost all the time I experience strong guilt or self-hate after I overeat. Response Group 6: A Group 7 A. I don't lose total control of my eating when dieting even after periods when I overeat. B. Sometimes when I eat a forbidden food on a diet, I feel like I blew it and eat even more. C. Frequently, I have the habit of saying to myself, I've blown it now, why not go all the way, when I overeat on a diet. When that happens I eat more. D. I have a regular habit of starting a strict diets for myself but I break the diets by going on an eating binge. My life seems to be either a feast or famine. Response Group 7: D Group 8 A. I rarely eat so much food that I feel uncomfortably stuffed afterwards. B. Usually about once a month, I each such a quantity of food, I end up feeling very stuffed. C. I have regular periods during the month when I eat large amounts of food, either at mealtime or at snacks. D. I eat so much food that I regularly feel quite uncomfortable after eating and sometimes a bit nauseous. Response Group 8: C Group 9 A. My level of calorie intake does not go up very high or go down very low on a regular basis. B. Sometimes after I overeat, I will try to reduce my caloric intake to almost nothing to compensate for the excess calories I've eaten. C. I have a regular habit of overeating during the night. It seems that my routine is not to be hungry in the morning but overeat in the evening. D. In my adult years, I have had week-long periods where I practically starve myself. This follows periods when I overeat. It seems I live a life of either feast or famine. Response Group 9: B Group 10 A. I usually am able to stop eating when I want to. I know when enough is enough. B. Every so often, I experience a compulsion to eat which I can't seem to control. C. Frequently, I experience strong urges to eat which I seem unable to control, but at other times I can control my eating urges. D. I feel incapable of controlling urges to eat. I have a fear of not being able to stop eating voluntarily. Response Group 10: C Group 11 A. I don't have any problem stopping eating when I feel full. B. I usually can stop eating when I feel full but occasionally overeat leaving me feeling uncomfortably stuffed. C. I have a problem stopping eating once I start and usually I feel uncomfortably stuffed after I eat a meal. D. Because I have a problem not being able to stop eating when I want, I sometimes have to induce vomiting to relieve my stuffed feeling. Response Group 11: B Group 12 A. I seem to eat just as much when I'm with others, Family social gatherings as when I'm by myself. B. Sometimes, when I'm with other persons, I don't eat as much as I want to eat because I'm self-conscious about my eating. C. Frequently, I eat only a small amount of food when others are present, because I'm very embarrassed about my eating. D. I feel so ashamed about overeating that I pick times to overeat when I know no one will see me. I feel like a closet eater. Response Group 12: B Group 13 A. I eat three meals a day with only an occasional between meal snack. B. I eat 3 meals a day, but I also normally snack between meals. C. When I am snacking heavily, I get in the habit of skipping regular meals. D. There are regular periods when I seem to be continually eating, with no planned meals. Response Group 13: B Group 14 A. I don't think much about trying to control unwanted eating urges. B. At least some of the time, I feel my thoughts are pre-occupied with trying to control my eating urges. C. I feel that frequently I spend much time thinking about how much I ate or about trying not to eat anymore. D. It seems to me that most of my waking hours are pre-occupied by thoughts about eating or not eating. I feel like I'm constantly struggling not to eat. Response Group 14: B Group 15 A. I don't think about food a great deal. B. I have strong craving for food but they last only for brief periods of time. C. I have days when I can't seem to think about anything else but food. D. Most of my days seem to be pre-occupied with thoughts about food. I feel like I live to eat. Response Group 15: B Group 16 A. I usually know whether or not I'm physically hungry. I take the right portion of food to satisfy me. B. Occasionally, I feel uncertain about knowing whether or not I'm physically hungry. A these times it's hard to know how much food I should take to satisfy me. C. Even though I might know how many calories I should eat, I don't have any idea what is a normal amount of food for me. Response Group 16: B Binge Eating Score: 25 Score less than 17 Minimal Risk Score between 18-26 Moderate Risk Score between 27-46 High Risk Assessment & Plan Assessment & Plan (1) Adjustment disorder: Code(s): F43.20 - Adjustment disorder, unspecified (2) Pre-bariatric surgery psychological evaluation: Code(s): Z71.89 - Other specified counseling Plan The patient has been cleared from a behavioral health standpoint and may be submitted for insurance approval when appropriate. She will be scheduled to return for a post-operative behavioral health follow-up visit in 2?3 weeks after surgery. Next natalya: 2-3 weeks Post-op. Telehealth Telehealth Telehealth Platform: [employer] Location of provider rendering services: other Location of patient: address on file Patient Identification confirmed using: Name, : Yes Telehealth method: voice only Patient verbally consented to treatment: Yes Patient verbally consented to billing insurance company: Yes Patient informed of any privacy concerns related to visit: Yes Minutes spent on Phone/Video with Pt.: 45 Coding Level of Care Code Established Pt Tele Psytx 45 mins (22437) Patient Type Established Diagnoses Adjustment disorder F43.20 Pre-bariatric surgery psychological evaluation Z71.89 Additional Codes PHQ-9 - 64979 - PHQ-9 Billing: Yes ([id number]) Time Spent (min) 45
== END 2024-10-15 10:23 | disposition home or self-care (01) ==
LOC: HO.HBST 09:22
PROVIDERS: Visit Provider Counselor Mental Health
DX: F43.20 Adjustment disorder, unspecified (principal); Z71.89 Other specified counseling
CPT/HCPCS: 90834

== ENCOUNTER → 2024-10-15 09:22 | Outpatient (BNVA) | payer MEDICARE, MEDICAID, SELFPAY | PROVIDERS: Visit Provider Counselor Mental Health | DX: Z13.89 Encounter for screening for other disorder (principal) ==

== ENCOUNTER 2024-10-22 12:13 | Outpatient (REF) | payer MEDICARE, MEDICAID, SELFPAY ==
--- NOTE | ~2024-10-22 | US_ITS ---
EXAMINATION: US ABDOMEN COMPLETE WITH LIVER ELASTOGRAPHY HISTORY: E66.9 - Obesity, unspecified TECHNIQUE: Real-time grayscale ultrasound imaging of the abdomen was performed and images were reviewed. COMPARISON: There are no prior studies for comparison. FINDINGS: Liver: The right lobe of the liver measures 16.0 cm in size. The left lobe of the liver measures 9.0 cm in size. The liver demonstrates normal homogeneous echotexture. No focal mass or intrahepatic biliary ductal dilatation is identified. There is normal hepatopedal flow in the portal vein. Ultrasound elastography of the liver was performed with 10 separate measurements of the liver parenchyma with the patient in the supine position. Measurements were obtained approximately 2 cm below Sandoval's capsule and perpendicular to the capsule. Images are of satisfactory quality. The median shear wave velocity is 1.50 m/s. The interquartile range/median (IQR/median) is 0.15. Gallbladder and biliary tree: The gallbladder is surgically absent. The common bile duct is normal in caliber measuring 6 mm. Kidneys: The right kidney measures 10.3 cm in length and demonstrates a 4 mm cyst in the interpolar region is otherwise unremarkable. The left kidney is unremarkable. Pancreas: The pancreatic head, neck, and body are unremarkable. The pancreatic tail is obscured by bowel gas. Spleen: The spleen is normal in size and contour, measuring 10.9 cm in length. Abdominal aorta and inferior vena cava: The visualized portions of the abdominal aorta and inferior vena cava are normal in caliber. There is no free fluid in the abdomen. US/US abdomen comp w elastography IMPRESSION: 4 mm right renal cyst. Otherwise unremarkable abdominal ultrasound. The median shear wave velocity in the liver is 1.50 m/s, corresponding to a median liver stiffness of 6.99 kPa. The IQR/median value is 0.15. This is indicative of a poor quality data set, and the estimated liver stiffness may be unreliable. Findings are indicative of a low elastography value which rules out advanced chronic liver disease in asymptomatic patients. REFERENCE: Society of Radiologists in Ultrasound Liver Stiffness Thresholds (2020): LIVER STIFFNESS THRESHOLDS: *Shear wave velocity less than 1.3 m/s (Liver Stiffness equal or less than 5 kPa): High probability of being normal. *Shear wave velocity less than 1.7 m/s (Liver Stiffness less than 9 kPa): In the absence of other known clinical signs, rules out compensated advanced chronic liver disease. *Shear wave velocity between 1.7-2.1 m/s (Liver Stiffness 9-13 kPa): Suggestive of compensated advanced chronic liver disease but need further test for confirmation. *Shear wave velocity between 2.1-2.4 m/s (Liver Stiffness 13-17 kPa): Rules in compensated advanced chronic liver disease. *Shear wave velocity greater than 2.4 m/s (Liver Stiffness over 17 kPa): Suggestive of clinically significant portal hypertension. QUALITY OF DATA SET: *IQR/Median value equal or less than 0.15 implies a quality data set. *IQR/Median value over 0.15 implies a poor quality data set. SIGNIFICANT CHANGE FROM PRIOR EXAM: Significant change if liver stiffness measurement is 10% or greater from prior exam. OTHER CONSIDERATIONS: The stage of liver fibrosis may be overestimated in the setting of acute hepatitis, liver inflammation, elevated liver function tests, hepatic vascular congestion, obstructive cholestasis, non-fasting state, and infiltrative diseases such as amyloidosis and lymphoma. In some patients with NAFLD, the liver stiffness thresholds for compensated advanced chronic liver disease may be lower. In causes other than viral hepatitis and NAFLD, liver stiffness thresholds are not well established. Electronically signed by: Josue Mccall MD 10/22/2024 01:15 PM EDT
== END 2024-10-22 12:14 | disposition home or self-care (01) ==
LOC: HO.US 12:13
PROVIDERS: Visit Provider Surgery
DX: E66.9 Obesity, unspecified (principal); Z68.35 Body mass index [BMI] 35.0-35.9, adult; K21.9 Gastro-esophageal reflux disease without esophagitis; I10 Essential (primary) hypertension; E11.9 Type 2 diabetes mellitus without complications; G47.30 Sleep apnea, unspecified
CPT/HCPCS: 76700; 76981

== ENCOUNTER → 2024-10-22 12:17 | Outpatient (BNV) | payer MEDICARE, MEDICAID, SELFPAY | PROVIDERS: Visit Provider Radiology Diagnostic Radiology | DX: N28.1 Cyst of kidney, acquired (principal) | CPT/HCPCS: 76700 ==

== ENCOUNTER → 2024-11-14 11:02 | Outpatient (BNVA) | payer MEDICARE, MEDICAID, SELFPAY | PROVIDERS: Visit Provider Physician Assistant Surgical ==

== ENCOUNTER 2024-12-24 09:51 | Outpatient (REF) | payer MEDICARE, MEDICAID, SELFPAY ==
--- NOTE | ~2024-12-24 | FL_ITS ---
EXAMINATION: XR FLUOROSCOPY UPPER GI SERIES CLINICAL INFORMATION: Obesity, unspecified. COMPARISON: None TECHNIQUE: Fluoroscopic air contrast upper GI examination was performed utilizing standard techniques with thin and thick barium and effervescent granules. Numerous spot images were obtained. Several fluoroscopic image hold cine sequences were also obtained. FINDINGS: UPPER GI SERIES: Lateral cine images of the oropharynx and hypopharynx demonstrate normal swallow mechanism with normal epiglottic inversion and soft palate elevation. No laryngeal penetration, glottic or subglottic aspiration identified. No nasopharyngeal reflux present. Hypopharyngeal structures appear normal without evidence of mass or diverticulum. There was no significant cricopharyngeal achalasia. Dual and single contrast images of the esophagus demonstrate normal caliber, contour, and mucosal pattern. No evidence of stricture, mass, or ulcerations identified. Esophageal peristalsis was moderately disordered. There was delay of contrast passage through the GE junction due to apparent delayed peristalsis. Tiny type I hiatus hernia identified. Episodic gastroesophageal reflux was noted to the level of the thoracic inlet. Dual contrast and single contrast images of the stomach demonstrated normal contour and mucosal pattern without evidence of mass, ulceration, or other abnormality. Normal rugal fold pattern. Contrast freely passed into the gastric antrum and duodenal bulb without delay. Single and air-contrast images of the duodenal bulb demonstrate no abnormality. The duodenal sweep has a normal appearance, course, and mucosal fold appearance. Cholecystectomy clips noted. FLUOROSCOPY TIME: 3 minutes, 54 seconds Number of Spot Images:9 Number of cines obtained: 12 DOSE AREA PRODUCT: [id number] uGy-m2 (microgray-meter squared) FL/FL upper GI w air IMPRESSION: 1. Moderately disordered esophageal peristalsis. 2. Episodic gastroesophageal reflux to the level of the thoracic inlet. 3. Tiny type I hiatus hernia. 4. Normal appearance of the stomach and duodenum. Electronically signed by: Brant Solano MD 12/24/2024 10:59 AM EDT
== END 2024-12-24 09:52 | disposition home or self-care (01) ==
LOC: HO.XRAY 09:51
PROVIDERS: Visit Provider Surgery
DX: E11.9 Type 2 diabetes mellitus without complications (principal); I10 Essential (primary) hypertension; K21.9 Gastro-esophageal reflux disease without esophagitis; G47.30 Sleep apnea, unspecified; E66.9 Obesity, unspecified; Z68.35 Body mass index [BMI] 35.0-35.9, adult
CPT/HCPCS: 74246

== ENCOUNTER → 2024-12-24 09:53 | Outpatient (BNV) | payer MEDICARE, MEDICAID, SELFPAY | PROVIDERS: Visit Provider Radiology Diagnostic Radiology | DX: K21.9 Gastro-esophageal reflux disease without esophagitis (principal) | CPT/HCPCS: 74246 ==

== ENCOUNTER 2025-01-05 12:58 | Outpatient (REF) | payer MEDICARE, MEDICAID, SELFPAY ==
--- NOTE | ~2025-01-05 | CT_ITS ---
CLINICAL HISTORY: R93.89 - Abnormal findings on diagnostic imaging of other specified body... CT chest without contrast Comparison: CR - XR CHEST 2V - 09/22/24 09:08 EDT Findings: The heart size is normal. The visualized thyroid and mediastinum are unremarkable. No consolidation or effusion. The upper abdomen is unremarkable. No acute fractures. IMPRESSION: 1. Unremarkable chest CT. No evidence of thoracic aortic aneurysm. This document has been electronically signed by: Darwin Anne MD on 01/05/2025 22:50:15
--- OUTSIDE RECORDS SUMMARY | 2025-01-05 13:01 | XMS_ITS ---
Author Organization [facility] Address [address] [place] [address] Care Team Providers Care Market Research Coordinator Name Role Phone Asia Gonzales Primary Care Provider [phone] Asthma Program Status:Enrolled (Active) Start date:10/21/2024 Enrollment date:10/21/2024 Case Team Name Relationship Phone Maurice Gold PharmD(Responsible Staff) [phone] Continued Care and Services Coordination
== END 2025-01-05 12:59 | disposition home or self-care (01) ==
LOC: HO.CT 12:58
PROVIDERS: Visit Provider Physician Assistant Surgical
DX: R93.89 Abnormal findings on diagnostic imaging of other specified body structures (principal)
CPT/HCPCS: 71250

== ENCOUNTER → 2025-01-05 13:00 | Outpatient (BNV) | payer MEDICARE, MEDICAID, SELFPAY | PROVIDERS: Visit Provider Student in an Organized Health Care Education/Training Program | DX: R91.8 Other nonspecific abnormal finding of lung field (principal) | CPT/HCPCS: 71250 ==

== ENCOUNTER 2025-02-11 08:26 | Outpatient (AMB) | payer MEDICARE, MEDICAID, SELFPAY ==
--- OUTSIDE RECORDS SUMMARY | 2025-02-11 09:25 | XMS_ITS ---
Author Organization [facility] Address [address] [place] [address] Care Team Providers Care Cd Mixer Name Role Phone Asia Gonzales Primary Care Provider [phone] Asthma Program Status:Enrolled (Active) Start date:10/21/2024 Enrollment date:10/21/2024 Case Team Name Relationship Phone Maurice Gold PharmD(Responsible Staff) [phone] Continued Care and Services Coordination
--- OUTSIDE RECORDS SUMMARY | 2025-02-11 09:25 | XMS_ITS | Clinical Summary ---
Author Organization [facility] Address [address] [place] [address] Care Team Providers Care Rn Case Mgr Name Role Phone Asia Gonzales Primary Care Provider [phone] Source Comments PLEASE NOTE, if this patient is a minor, it may be UNLAWFUL to discuss sensitive information that is contained in these records (such as FAMILY PLANNING, MENTAL HEALTH or SUBSTANCE ABUSE) with the minor patient's parent or other person without the patient's specific authorization.[facility] Allergies No known active allergies Medications amLODIPine (NORVASC) 5 mg tabletIndicatio ns:Medication refill Take 1 Tablet by mouth once daily 90 Tablet 2 5 Active atorvastatin (LIPITOR) 20 mg tabletIndicatio ns:Medication refill Take 1 Tablet by mouth nightly at bedtime 90 Tablet 2 5 Active DULoxetine (CYMBALTA) [address] capsuleIndicati ons:Medication refill Take 1 Capsule by mouth once daily 90 Capsule 1 5 Active famotidine (PEPCID) 20 mg tabletIndicatio ns:Medication refill Take 1 Tablet by mouth daily 90 Tablet 2 5 Active irbesartan-hydr ochlorothiazide (AVALIDE) 300-12.5 mg per tabletIndicatio ns:Medication refill Take 1 Tablet by mouth once daily 90 Tablet 2 5 Active metFORMIN (GLUCOPHAGE) 1,000 mg tabletIndicatio ns:Medication refill Take 1 Tablet by mouth 2 (two) times daily with a meal 180 Tablet 2 5 Active omeprazole (PRILOSEC) [address] capsuleIndicati ons:Medication refill Take 1 Capsule by mouth daily 90 Capsule 1 5 Active albuterol HFA (VENTOLIN HFA) 90 mcg/actuation inhalerIndicati ons:Medication refill Inhale 1 Puff into the lungs every 4 (four) hours as needed for shortness of breath or wheezing 8 g 1 Active fluticasone furoate-vilante roL (BREO ELLIPTA) 200-25 mcg/doseIndicat ions:Medication refill Inhale 1 Puff into the lungs daily Same time each day. 60 Each 2 Active Active Problems Problem Noted Date Diagnosed Date Hx of breast cancer 07/10/2024 Type 2 diabetes mellitus, [facility] long-term current use of insulin ([facility]) 07/10/2024 Fibromyalgia 07/10/2024 WENDIE (obstructive sleep apnea) 07/10/2024 Moderate persistent asthma without complication ([facility]) 07/10/2024 Essential hypertension 07/10/2024 History of uterine cancer 07/10/2024 Primary insomnia 07/10/2024 Class 1 obesity with serious comorbidity and body mass index (BMI) of 34.0 to 34.9 in adult 07/10/2024 Allergic rhinitis due to pollen 07/10/2024 Cervicalgia 07/10/2024 Fatty liver 07/10/2024 Hypercholesterolemia 07/10/2024 Social History Tobacco Use Types Packs/Day Years Used Date Smoking Tobacco: Never Passive Smoke Exposure: Never Smokeless Tobacco: Never Tobacco Cessation:Counseling Given: Yes Alcohol Use Standard Drinks/Week Comments Never 0 (1 standard drink = 0.6 oz pur e alcohol) Comments No Sex and Gender Information Value Date Recorded Sex Assigned at Female 07/10/2024 4:20 PM PST Legal Sex Female 7:13 AM PST Gender Identity Female 07/10/2024 4:20 PM PST Sexual Orientation Straight 07/10/2024 4: 20 PM PST Last Filed Vital Signs Vital Sign Reading Time Taken Comments Blood Pressure 124/90 10/27/2024 2:04 PM EDT Pulse 73 10/27/2024 2:04 PM EDT Temperature 36.6 C (97.9 F) 10/27/2024 2:04 PM EDT Respiratory Rate 16 10/27/2024 2:04 PM EDT Oxygen Saturation 98% 10/27/2024 2:04 PM EDT Inhaled Oxygen Concentration - - Weight 100.9 kg (222 lb 8 oz) 10/27/2024 2:04 PM EDT Height 170.2 cm (5' 7 ) 10/27/2024 2:04 PM EDT Body Mass Index 34.85 10/27/2024 2:04 PM EDT Plan of Treatment Upcoming Encounters Date Type Department Care Team (Late st Contact Info) Description 02/26/2025 2:00 PM EDT Office Visit [facility] [address] [place] [phone] Maurice Gold, PharmD [address] [place] [address] 03/23/2025 9:00 AM EDT Office Visit [facility] [address] [place] [phone] Deidra Zaragoza [address] [place] [address] Health Maintenance Due Date Last Done Comments Anxiety Screening 1960 Diabetes Foot Exam 1960 Medicare Annual Wellness Visit 1978 Imm-DTaP/Tdap/Td (1 - Tdap) 1979 Imm-Pneumococcal 50+ (1 of 2 - PCV) 1979 Breast Cancer Screening (Mammogram) 2000 CT Colonography 2005 Colonoscopy 2005 Colorectal Cancer Screening 2005 FIT/gFOBT 2005 Fecal DNA 2005 Flexible Sigmoidoscopy 2005 Imm-Zoster, Recombinant (1 of 2) 2010 [id number] (1 - season) 2025 Imm-Influenza (#1) 2025 Hemoglobin A1c 03/03/2025 09/01/2024 Lipid Screening 03/03/2025 09/01/2024 Serum Creatinine 09/01/2025 09/01/2024 Urine Albumin Creatinine Ratio Screening 09/01/2025 09/01/2024 Tobacco Screening 10/27/2025 10/27/2024, 10/21/2024 Dental Examination 10/29/2025 10/27/2024 Retinopathy Screening 11/17/2025 11/17/2024 Alcohol and Drug Screen Completed 07/10/2024 Depression Annual Screen Completed 07/10/2024 HIV Screening Completed 09/01/2024 Hepatitis C Screening Completed 09/01/2024 Procedures Procedure Name Priority Date/Time Associated Diagnosis Comments MEDICATIONS SCANNED DOCUMENT 12/02/2024 3:00 AM EDT [facility] REPORT 3:00 AM EDT HIV 1/2 AG & AB W/RFLX (4TH GEN) Routine 09/01/2024 11:52 AM EDT COMPREHENSIVE METABOLIC PANEL Routine 09/01/2024 11:52 AM EDT Type 2 diabetes mellitus without complication, without long-term current use of insulin ([facility]) Class 2 severe obesity due to excess calories with serious comorbidity and body mass index (BMI) of 35.0 to 35.9 in adult ([facility]) HEPATITIS C AB W/RFLX HCV RNA, QT, RT PCR Routine 09/01/2024 11:52 AM EDT LIPID PANEL Routine 09/01/2024 11:52 AM EDT Type 2 diabetes mellitus without complication, without long-term current use of insulin ([facility]) MICROALBUMIN/CREATININE RATIO, URINE, RANDOM Routine 09/01/2024 11:52 AM EDT Type 2 diabetes mellitus without complication, without long-term current use of insulin ([facility]) Class 2 severe obesity due to excess calories with serious comorbidity and body mass index (BMI) of 35.0 to 35.9 in adult ([facility]) HEMOGLOBIN GLYCOSYLATED A1C Routine 09/01/2024 11:52 AM EDT Type 2 diabetes mellitus without complication, without long-term current use of insulin ([facility]) Class 2 severe obesity due to excess calories with serious comorbidity and body mass index (BMI) of 35.0 to 35.9 in adult ([facility]) from Last 3 Months or Most Recently Relevant to Health Maintenance Results * MEDICATIONS SCANNED DOCUMENT (12/02/2024 3:00 AM EDT) 12/02/2024 3:00 AM EDT [facility] Provider Default SCAN MEDS OTHER ORDERS Fin al Result * [facility] OFF[facility] REPORT (11/17/2024 3:00 AM EDT) 11/17/2024 3:00 AM EDT Sruthi Figueredo PA-C SCAN PROCEDURES Final Result * HEPATITIS C AB W/RFLX HCV RNA, QT, RT PCR (09/01/2024 11:52 AM EDT) HEPATITIS C ANTIBODY NON-REACT GENEVA NON-REACT GENEVA [facility] Comment: HCV antibody was non-reactive. There is no laboratory evidence of HCV infection. In most cases, no further action is required. However, if recent HCV exposure is suspected, a test for HCV RNA (test code 44683) is suggested. For additional information please refer to http://education.[employer]/faq/OAZ93k5 (This link is being provided for informational/ educational purposes only.) 09/01/2024 11:5 2 AM EDT 09/01/2024 11:54 AM EDT Narrative [email or web address] - 09/02/2024 6:41 PM EDT FASTING:YES Asia [facility] - BLOOD DRAW Edited Result - Final [email or web address] [address] [place] [id number], [facility] [address] [phone] * HIV 1/2 AG & AB W/RFLX (4TH GEN) (09/01/2024 11:52 AM EDT) HIV AG/AB, 4TH GEN NON-REAC TIVE NON-REAC TIVE [facility] Comment: HIV-1 antigen and HIV-1/HIV-2 antibodies were not detected. There is no laboratory evidence of HIV infection. PLEASE NOTE: This information has been disclosed to you from records whose confidentiality may be protected by state law. If your state requires such protection, then the state law prohibits you from making any further disclosure of the information without the specific written consent of the person to whom it pertains, or as otherwise permitted by law. A general authorization for the release of medical or other information is NOT sufficient for this purpose. For additional information please refer to http://education.[employer]/faq/BGS829 (This link is being provided for informational/ educational purposes only.) The performance of this assay has not been clinically validated in patients less than 2 years old. 09/01/2024 11:5 2 AM EDT 09/01/2024 11:54 AM EDT Narrative [email or web address] - 09/02/2024 6:41 PM EDT FASTING:YES Asia [facility] - BLOOD DRAW Final Result [facility] [address] [address], [facility] [address] [phone] * (ABNORMAL) MICROALBUMIN/CREATININE RATIO, URINE, RANDOM (09/01/2024 11:52 AM EDT) CREATININE, RANDOM URINE 209 20 - 275 mg/dL [facility] MICROALBUMIN 7.0 mg/dL [facility] [employer] [facility] Comment: Reference Range Not established MICROALBUMIN/CREA TININE RATIO, RANDOM URINE 33(H) <30 mg/g creat [facility] Comment: The ADA defines abnormalities in albumin excretion as follows: Albuminuria Category Result (mg/g creatinine) Normal to Mildly increased <30 Moderately increased 30-299 Severely increased > OR = 300 The ADA recommends that at least two of three specimens collected within a 3-6 month period be abnormal before considering a patient to be within a diagnostic category. Urine Urine specimen / Unknown 09/01/2024 11:52 AM EDT 09/01/2024 11:54 AM EDT Narrative [facility] - 09/02/2024 6:41 PM EDT FASTING:YES us [facility] URINE AMBULATORY Final Resul t Performing Organization Address [facility] Co de Phone Number [facility] [address] [address], [email or web address] [address] [phone] * (ABNORMAL) HEMOGLOBIN GLYCOSYLATED A1C (09/01/2024 11:52 AM EDT) HEMOGLOBIN A1C 6.4(H) <5.7 % of total Hgb [facility] Comment: For someone without known diabetes, a hemoglobin A1c value between 5.7% and 6.4% is consistent with prediabetes and should be confirmed with a follow-up test. For someone with known diabetes, a value <7% indicates that their diabetes is well controlled. A1c targets should be individualized based on duration of diabetes, age, comorbid conditions, and other considerations. This assay result is consistent with an increased risk of diabetes. Currently, no consensus exists regarding use of hemoglobin A1c for diagnosis of diabetes for children. Blood Blood / Unknown 09/01/2024 1 1:52 AM EDT 09/01/2024 11:54 AM EDT Narrative [facility] - 09/02/2024 6:41 PM EDT FASTING:YES us [facility] - BLOOD DRAW Edited Result - Final Performing Organization Address City/[facility]/ZIP Co de Phone Number [facility] [address] [address], [email or web address] [address] [phone] * (ABNORMAL) LIPID PANEL (09/01/2024 11:52 AM EDT) CHOLESTEROL, TOTAL 175 <200 mg/dL [facility] HDL CHOLESTEROL 44(L) > OR = 50 mg/dL [facility] TRIGLYCERIDES 107 <150 mg/dL [facility] LDL-CHOLESTEROL 110(H) 99 mg/dL (calc) [facility] Comment: Reference range: <100 Desirable range <100 mg/dL for primary prevention; <70 mg/dL for patients with CHD or diabetic patients with > or = 2 CHD risk factors. LDL-C is now calculated using the Enrique calculation, which is a validated novel method providing better accuracy than the Friedewald equation in the estimation of LDL-C. Juan ALTAMIRANO et al. STEVIE. 2013;310(19): 4868-5794 (http://education.[employer]/faq/YRC991) CHOL/HDLC RATIO 4.0 <5.0 (calc) [facility] NON-HDL CHOLESTEROL 131(H) <130 mg/dL (calc) [facility] Comment: For patients with diabetes plus 1 major ASCVD risk factor, treating to a non-HDL-C goal of <100 mg/dL (LDL-C of <70 mg/dL) is considered a therapeutic option. Blood Blood / Unknown 09/01/2024 1 1:52 AM EDT 09/01/2024 11:54 AM EDT Narrative [email or web address] - 09/02/2024 6:41 PM EDT FASTING:YES [facility] - BLOOD DRAW Final Result [email or web address] [address] [place] [address], [facility] [address] [place] [phone] * (ABNORMAL) COMPREHENSIVE METABOLIC PANEL (09/01/2024 11:52 AM EDT) GLUCOSE 204(H) 65 - 99 mg/dL [facility] Comment: Fasting reference interval For someone without known diabetes, a glucose value >125 mg/dL indicates that they may have diabetes and this should be confirmed with a follow-up test. UREA NITROGEN (BUN) 15 7 - 25 mg/dL [facility] CREATININE (blood) 0.75 0.50 - 1.05 mg/dL [facility] EGFR 89 > OR = 60 mL/min/1. 73m2 [facility] BUN/CREATININE RATIO SEE NOTE: [facility] Comment: Not Reported: BUN and Creatinine are within reference range. SODIUM 139 135 - 146 mmol/L [facility] POTASSIUM 4.8 3.5 - 5.3 mmol/L [facility] CHLORIDE 98 98 - 110 mmol/L [facility] CARBON DIOXIDE 25 20 - 32 mmol/L [facility] CALCIUM 10.1 8.6 - 10.4 mg/dL [facility] PROTEIN, TOTAL 8.2(H) 6.1 - 8.1 g/dL [facility] ALBUMIN 4.4 3.6 - 5.1 g/dL [facility] GLOBULIN 3.8(H) 1.9 - 3.7 g/dL (calc) [facility] ALBUMIN/GLOBULI N RATIO 1.2 1.0 - 2.5 (calc) [facility] BILIRUBIN, TOTAL 0.9 0.2 - 1.2 mg/dL [facility] ALKALINE PHOSPHATASE 88 37 - 153 U/L [facility] AST 31 10 - 35 U/L [facility] ALT 32(H) 6 - 29 U/L [facility] Blood Blood / Unknown 09/01/2024 1 1:52 AM EDT 09/01/2024 11:54 AM EDT Narrative [facility] - 09/02/2024 6:41 PM EDT FASTING:YES [facility] - BLOOD DRAW Edited Result - Final [facility] [address] [address], [facility] [address] [phone] from Last 3 Months or Most Recently Relevant to Health Maintenance [place] Care Teams Rn Case Mgr Relationship Specialty Start Date End Date Asia Gonzales PA [address] [place] [address] PCP - General Primary Care 07/10/24
[2025-02-11 12:43] VITALS: BMI 35.2
--- NOTE | 2025-02-11 12:43 | A.OFFVIS_ITS ---
VS Expanded 02/11/25 12:43 Height 5 ft 6 in Weight 218 lb BMI 35.2 Body Fat % 44.5 Body Fat Mass 97 Fat Free Mass 121 Visceral Fat Rating 12 Body Water Mass 86 Basal Metabolic Rate/Score 1,686 Intake Visit Reasons: TV Pre Op LSG 02/24/25 *FINANCIAL OPERATIONS CONSULTANT* Burn Center Nurse Required: Yes Burn Center Nurse Services: Burn Center Nurse Present Information Interpreted: clinical only Allergies No Known Allergies Allergy (Verified 02/11/25 12:51) Medication List - Last Reconciled 02/11/25 by Wai Huang MD albuterol sulfate 90 mcg/actuation 1 puff inhalation Q4H PRN duloxetine (Cymbalta) 60 mg PO DAILY famotidine 20 mg PO BEDTIME fluticasone furoate-vilanterol 50-25 mcg/dose (Breo Ellipta) inhalation irbesartan 150 mg PO DAILY metformin 500 mg PO BID ondansetron 4 mg PO Q12H pantoprazole 40 mg PO DAILY polyethylene glycol 3350 17 grams PO DAILY sucralfate 10 mL PO BID HPI HPI TV Pre Op LSG 02/24/25 *FINANCIAL OPERATIONS CONSULTANT*: Details: Start time: 12.37pm, End time: 1.07pm ?I spent 25 minutes speaking with the patient on the phone plus an additional 5 minutes reviewing and updating records for a total of 30 minutes HPI Comments Details: Is doing a premade Premier protein shakes and one meal PFSH Medical History GERD (gastroesophageal reflux disease) Hypertension Non-insulin dependent type 2 diabetes mellitus BMI 35.0-35.9,adult Sleep apnea treated with continuous positive airway pressure (CPAP) Obesity HX: breast cancer Surgical History (Updated 02/09/25 @ 15:01 by Marisabel Hernandez, RN) Hx of tonsillectomy Hx of appendectomy History of partial mastectomy of left breast History of hysterectomy History of laparoscopic cholecystectomy Hx of colonoscopy History of esophagogastroduodenoscopy (EGD) (10/10/24) Family History (Updated 09/02/24 @ 10:30 by MARIELLA Douglas) Family/Other Cancer of breast HTN (hypertension) Mother Diabetes HTN (hypertension) Father Diabetes HTN (hypertension) Social History (Updated 02/09/25 @ 15:25 by Marisabel Hernandez RN) Household Members: Other Household Members Other:: son and [id number] Housing: Apartment Are you a primary medicare specialist to a significant other at home: No Do you presently have visiting nurse or other home services: No 75 years or older and lives alone: No Patient Tobacco Use Status: Never used Tobacco Telehealth Telehealth Telehealth Platform: Telephone Location of provider rendering services: practice address Location of patient: address on file Patient Identification confirmed using: Name, : Yes Telehealth method: voice only Patient verbally consented to treatment: Yes Patient verbally consented to billing insurance company: Yes Patient informed of any privacy concerns related to visit: Yes Minutes spent on Phone/Video with Pt.: 30 Assessment & Plan Assessment & Plan (1) Obesity: Code(s): E66.9 - Obesity, unspecified Category: Medical Qualifiers: Obesity type: due to excess calories Obesity classification: adult class 2 (BMI 35 - 39.9) Serious obesity comorbidity presence: with serious comorbidity Body mass index: BMI 35.0-35.9 Qualified Code(s): E66.812 - Obesity, class 2; E66.01 - Morbid (severe) obesity due to excess calories; Z68.35 - Body mass index [BMI] 35.0-35.9, adult Plan: 1. Plan for lap sleeve gastrectomy including upper GI endoscopy. All tests has been completed and reviewed and the patient is cleared for the surgery. ?If diaphragmatic or ventral hernias are present at time of surgery, these will be repaired laparoscopically as well. Risks and complications were discussed in detail including possible conversion to an open procedure, anastomotic leak, bleeding requiring transfusion, small bowel obstruction, , DVT and pul monary embolism, cardiac, or pulmonary complications, as director long term care complications such as anastomotic ulcer, insufficient weight loss and vitamin deficiencies. I emphasized the importance of close follow-up, adherence to instructions and good communication. So far she has proven to be an excellent communicator and very compliant with all our directions accomplishing a great weight loss. I believe that she is an excellent candidate and she is ready. 2. Preop prescriptions were provided and explained the purpose of each one. Need to be purchased preop. Start Pantoprazole now as you get it from the pharmacy, 1 pill per day. Sucralfate and Zofran are for after surgery as needed. 3. Bowel prep: please do 7 packets ?of Miralax mixing each one with a an 8oz glass of water, crystal light, gatorade zero, or propel ?on 02/22/25 and the same amount on 02/23/25. The Miralax you begin with one packet at a time in 8oz water or crystal light, gatorade zero, or propel ?as early in the day as you can and you do them back to back until you finish them. Continue the protein shakes during ?the bowel prep. 4. Needs to purchase 1oz medicine cups . 5. Needs to purchase Children's liquid Tylenol for postop pain control. 6. She needs to stop the Metformin as of today. Avoid aspirin, motrin, Advil, Aleve, Meloxicam, Excedrin, Ibuprofen, Naproxyn. Tylenol is OK. 7. She needs to purchase the Celebrate multivitamins from the hospital's gift shop, chewable or pills whatever you prefer. 8. Will do basic preop blood work-up any day between Sunday02/16/25 and Sunday02/20/25 fasting for 12 hours and is scheduled to see the Anesthesiologist prior to the day of surgery. 9. Importance of adherence to postop follow-up and recommendations was underscored and she understands that. 10. Stop food and bars as of tomorrow 02/12/25 and continue with 3 premade Premier protein shakes (mix 4oz of Premier shake with 4oz almond milk) at10am- 12pm, 1pm-3pm and 4pm-6pm and two more Premier protein shakes (8oz EACH and NOT the whole bottle) at 7pm-9pm and 10pm to midnight. 11. No soups, broths or V8 12. The patient's?medical?history has been reviewed and they are considered low risk for post op DVT and therefore DVT prophylaxis is not considered necessary. Travel after surgery was reviewed. The patient has not disclosed any travel plans during the first 30 days after surgery and they have been advised that within the first 30 days after surgery any bus, plane, train or car travel over 2 hours in duration is contraindicated due to the possibility of developing blood clots from immobility. Any travel, needs to include periods of ambulation of 10 minutes in duration every 2 hours.? Patient was instructed to discuss any plans for travel during this period with their bariatric surgeon.? 13. Use your CPAP daily and bring it to the hospital with your mask 14. As of tomorrow, please check your blood pressure daily in the morning. If your blood pressure is: Below 120/70: do not take the Irbesartan 121/71 to 135/85: take HALF Irbesartan Over 136/86: take the whole Irbesartan 15. Please take at the day of surgery the following medications: Irbesartan if the blood pressure that day is high enough to justify it based on the parameters at the previous bullet point. 16. Stop any control pills and don't use them for one month after surgery 17. Absolutely no smoking or vaping, or marijuana until the surgery and for at least the first 4 weeks. Only nicotine patches are allowed. 18. Send me weight measurements on Sunday02/18/25 and then on Sunday02/24/25 the day of surgery before you go to the hospital. 19. Avoid any steroids by mouth for any reason. Let me know if someone prescribes them to you 20. These instructions supersede anything else you read in the handbook, anything you watched in videos or classes or you were told by any other provider. If there is any conflict, you follow the above instructions and nothing else. Orders: Orders Complete Blood Count Auto Diff Today E11.9 - Type 2 diabetes mellitus without complications, E66.01 - Morbid (severe) obesity due to excess calories, E66.812 - Obesity, class 2, I10 - Essential (primary) hypertension, Z68.35 - Body mass index [BMI] 35.0-35.9, adult C Reactive Protein Today E11.9 - Type 2 diabetes mellitus without complications, E66.01 - Morbid (severe) obesity due to excess calories, E66.812 - Obesity, class 2, I10 - Essential (primary) hypertension, Z68.35 - Body mass index [BMI] 35.0-35.9, adult Lipid Panel Today E11.9 - Type 2 diabetes mellitus without complications, E66.01 - Morbid (severe) obesity due to excess calories, E66.812 - Obesity, class 2, I10 - Essential (primary) hypertension, Z68.35 - Body mass index [BMI] 35.0-35.9, adult Type and Screen Today E11.9 - Type 2 diabetes mellitus without complications, E66.01 - Morbid (severe) obesity due to excess calories, E66.812 - Obesity, class 2, I10 - Essential (primary) hypertension, Z68.35 - Body mass index [BMI] 35.0-35.9, adult Prothrombin Time INR Today E11.9 - Type 2 diabetes mellitus without complications, E66.01 - Morbid (severe) obesity due to excess calories, E66.812 - Obesity, class 2, I10 - Essential (primary) hypertension, Z68.35 - Body mass index [BMI] 35.0-35.9, adult TSH reflex Free T4 Today E11.9 - Type 2 diabetes mellitus without complications, E66.01 - Morbid (severe) obesity due to excess calories, E66.812 - Obesity, class 2, I10 - Essential (primary) hypertension, Z68.35 - Body mass index [BMI] 35.0-35.9, adult Insulin Today E11.9 - Type 2 diabetes mellitus without complications, E66.01 - Morbid (severe) obesity due to excess calories, E66.812 - Obesity, class 2, I10 - Essential (primary) hypertension, Z68.35 - Body mass index [BMI] 35.0-35.9, adult Hemoglobin A1c Today E11.9 - Type 2 diabetes mellitus without complications, E66.01 - Morbid (severe) obesity due to excess calories, E66.812 - Obesity, class 2, I10 - Essential (primary) hypertension, Z68.35 - Body mass index [BMI] 35.0-35.9, adult Comprehensive Met. Panel Today E11.9 - Type 2 diabetes mellitus without complications, E66.01 - Morbid (severe) obesity due to excess calories, E66.812 - Obesity, class 2, I10 - Essential (primary) hypertension, Z68.35 - Body mass index [BMI] 35.0-35.9, adult Partial Thromboplastin Time Today E11.9 - Type 2 diabetes mellitus without complications, E66.01 - Morbid (severe) obesity due to excess calories, E66.812 - Obesity, class 2, I10 - Essential (primary) hypertension, Z68.35 - Body mass index [BMI] 35.0-35.9, adult Medications: New ondansetron Only take one every 12 hours as needed if you have nausea 4 mg PO Q12H 20 tabs 0RF nausea and vomiting R11.0 - Nausea polyethylene glycol 3350 Mix each measuring cup with 8oz of water, Crystal light, or Gatorade zero, or Propel and do 7 measuring cups on 02/22/25 and another 7 measuring cups on 02/23/25 17 grams PO DAILY 238 grams 0RF Z01.818 - Encounter for other preprocedural examination pantoprazole 40 mg PO DAILY 90 tabs 0RF K21.9 - Gastro-esophageal reflux disease without esophagitis sucralfate 10 mL PO BID 600 mL 2RF K21.9 - Gastro-esophageal reflux disease without esophagitis
== END 2025-02-11 13:08 | disposition home or self-care (01) ==
LOC: HO.HBS 08:26
PROVIDERS: Visit Provider Surgery
DX: E66.812 Obesity, class 2 (principal); E66.01 Morbid (severe) obesity due to excess calories; Z68.35 Body mass index [BMI] 35.0-35.9, adult
CPT/HCPCS: 99214

== ENCOUNTER → 2025-02-24 07:30 | Outpatient (BNV) | payer MEDICARE, MEDICAID, SELFPAY | PROVIDERS: Admitting Provider Surgery; PCP Student in an Organized Health Care Education/Training Program; Visit Provider Surgery | DX: E66.812 Obesity, class 2 (principal); E66.01 Morbid (severe) obesity due to excess calories; Z68.35 Body mass index [BMI] 35.0-35.9, adult; E11.9 Type 2 diabetes mellitus without complications; I10 Essential (primary) hypertension; K21.9 Gastro-esophageal reflux disease without esophagitis; G47.30 Sleep apnea, unspecified; J45.909 Unspecified asthma, uncomplicated; Q43.3 Congenital malformations of intestinal fixation; K66.0 Peritoneal adhesions (postprocedural) (postinfection); Z98.84 Bariatric surgery status | CPT/HCPCS: 99024 ==

== ENCOUNTER 2025-02-24 12:05 | Inpatient (IN) | payer MEDICARE, MEDICAID, SELFPAY ==
[2025-02-09 15:21] VITALS: BMI 31.3
[2025-02-20 08:40] LABS: MANUAL DIFF FLAG NO
[2025-02-20 09:59] LABS: Hematocrit 43.9 % (37.0-47.0); Hemoglobin 14.8 g/dl (12.0-16.0); Imm Gran Abs Auto 0.03 X10*3/uL (0.00-0.03); Imm Gran Pct Auto 0.4 % (0.0-0.4); Lymphocytes Absolute Auto 2.8 X10*3/uL (1.2-4.9); Mean Corpuscular HGB Conc 33.7 g/dl (31.0-35.0); Mean Corpuscular Hemoglobin 28.7 pg (27.0-33.0); Mean Corpuscular Volume 85.1 fL (80.0-98.0); NRBC Abs Auto 0.000 X10*3/uL (0.0-0.012); NRBC Pct Auto 0.0 /100WBC (0.0-0.2); Platelet Count 291 X10*3/uL (160-400); Red Blood Count 5.16 X10*6/uL (4.20-5.50); White Blood Count 7.7 X10*3/uL (4.8-10.8)
--- NOTE | 2025-02-20 10:03 | HO.ANESPROP2 ---
Documented by User: Dayan Mendes NP 02/20/25 10:07 HPI - Anesthesia Eval Consult details Narrative: 64yo F for Gastrectomy Sleeve,EGD,possible Diaphragmatic Hernia,possible Ventral Hernia,possible Open Anesthesia Pre-Procedure Meds Is the patient on any of the following meds?: GLP1/DPP4 PMFSH Active Problems Active Problems: All Active Problems Abnormal chest x-ray (Acute) GERD (gastroesophageal reflux disease) (Acute) Hypertension (Acute) Non-insulin dependent type 2 diabetes mellitus (Acute) BMI 35.0-35.9,adult (Acute) Sleep apnea treated with continuous positive airway pressure (CPAP) (Acute) Obesity (Acute) Past Medical History Medical History GERD (gastroesophageal reflux disease) Hypertension Non-insulin dependent type 2 diabetes mellitus BMI 35.0-35.9,adult Sleep apnea treated with continuous positive airway pressure (CPAP) Obesity HX: breast cancer Family History Family History Family/Other Cancer of breast HTN (hypertension) Mother Diabetes HTN (hypertension) Father Diabetes HTN (hypertension) Family history of problems with anesthesia: No Surgical History Surgical History Hx of tonsillectomy Hx of appendectomy History of partial mastectomy of left breast History of hysterectomy History of laparoscopic cholecystectomy Hx of colonoscopy History of esophagogastroduodenoscopy (EGD) (10/10/24) History of Problems with Anesthesia: No Social History Social History Household Members: Other Household Members Other:: son and [id number] Housing: Apartment Are you a primary plant health care technician to a significant other at home: No Do you presently have visiting nurse or other home services: No 75 years or older and lives alone: No Patient Tobacco Use Status: Never used Tobacco Meds Allergies Allergy/AdvReac Type Severity Reaction Status Date / Time No Known Allergies Allergy Verified 02/11/25 12:51 Home Medications ?Medication ?Instructions ?Recorded ?Confirmed ?Last Taken ?Type famotidine 20 mg tablet 20 mg PO BEDTIME 09/02/24 02/11/25 Unknown History fluticasone furoate 50 inhalation 09/02/24 02/11/25 Unknown History mcg-vilanterol 25 mcg/dose inhalation powder (Breo Ellipta) irbesartan 300 mg tablet 150 mg PO DAILY 09/02/24 02/11/25 Unknown History metformin 500 mg tablet 500 mg PO BID 09/02/24 02/11/25 Unknown History duloxetine 60 mg capsule,delayed 60 mg PO DAILY 10/10/24 02/11/25 Unknown History release (Cymbalta) albuterol sulfate 90 mcg/actuation 1 puff inhalation Q4H PRN wheezing 02/09/25 02/11/25 Unknown History aerosol inhaler tirzepatide 2.5 mg/0.5 mL 2.5 mg subcut QWEEK 02/20/25 02/20/25 01/15/25 History subcutaneous pen injector (Mounjaro) Exam Height,Weight and Vital Signs: Height 5 ft 6 in Weight 87.997 kg Pertinent Lab Results Pertinent Lab Results: Laboratory Tests 02/20/25 02/20/25 08:38 08:40 WBC 7.7 RBC 5.16 Hgb 14.8 Hct 43.9 MCV 85.1 MCH 28.7 MCHC 33.7 RDW 12.6 Plt Count 291 MPV 10.4 Immature Gran % (Auto) 0.4 Neut % (Auto) 54.7 Lymph % (Auto) 35.8 [place] % (Auto) 6.0 Eos % (Auto) 2.2 Baso % (Auto) 0.9 Lymph # (Auto) 2.8 [place] # (Auto) 0.5 Eos # (Auto) 0.2 Baso # (Auto) 0.1 Abs Immat Gran (auto) 0.03 Absolute Neuts (auto) 4.2 Absolute Nucleated RBC 0.000 Nucleated RBC % (auto) 0.0 Blood Type B Positive Antibody Screen NEGATIVE Narrative Narrative: EKG 08/2024 Vent. Rate : 76 BPM Atrial Rate : 76 BPM P-R Int : 170 ms QRS Dur : 86 ms QT Int : 364 ms P-R-T Axes : 37 51 69 degrees QTcB Int : 409 ms Normal sinus rhythm Normal ECG No previous ECGs available Assessment and Plan Assessment Anesthesia Assessment: Chart Reviewed Final Anesthetic Review Family History of Problems with Anesthesia: No History of Problems with Anesthesia: No Documented by User: Chio Coats MD 02/24/25 08:19 [facility] Past Medical History Medical History GERD (gastroesophageal reflux disease) Hypertension Non-insulin dependent type 2 diabetes mellitus BMI 35.0-35.9,adult Sleep apnea treated with continuous positive airway pressure (CPAP) Obesity HX: breast cancer Family History Family History Family/Other Cancer of breast HTN (hypertension) Mother Diabetes HTN (hypertension) Father Diabetes HTN (hypertension) Surgical History Surgical History Hx of tonsillectomy Hx of appendectomy History of partial mastectomy of left breast History of hysterectomy History of laparoscopic cholecystectomy Hx of colonoscopy History of esophagogastroduodenoscopy (EGD) (10/10/24) Social History Social History Household Members: Other Household Members Other:: son and [id number] Housing: Apartment Are you a primary plant health care technician to a significant other at home: No Do you presently have visiting nurse or other home services: No 75 years or older and lives alone: No Patient Tobacco Use Status: Never used Tobacco Meds Allergies Allergy/AdvReac Type Severity Reaction Status Date / Time No Known Allergies Allergy Verified 02/11/25 12:51 Home Medications ?Medication ?Instructions ?Recorded ?Confirmed ?Last Taken ?Type famotidine 20 mg tablet 20 mg PO BEDTIME 09/02/24 02/11/25 Unknown History fluticasone furoate 50 inhalation 09/02/24 02/11/25 Unknown History mcg-vilanterol 25 mcg/dose inhalation powder (Breo Ellipta) irbesartan 300 mg tablet 150 mg PO DAILY 09/02/24 02/11/25 Unknown History metformin 500 mg tablet 500 mg PO BID 09/02/24 02/11/25 Unknown History duloxetine 60 mg capsule,delayed 60 mg PO DAILY 10/10/24 02/11/25 Unknown History release (Cymbalta) albuterol sulfate 90 mcg/actuation 1 puff inhalation Q4H PRN wheezing 02/09/25 02/11/25 Unknown History aerosol inhaler tirzepatide 2.5 mg/0.5 mL 2.5 mg subcut QWEEK 02/20/25 02/20/25 01/15/25 History subcutaneous pen injector (Valerie) Exam Airway Mallampati Class: III TM Dist: >3cm Neck ROM: Full Denture: Upper Loose/Missing/Broken Teeth: Yes, Upper and Lower Heart: RRR Lungs: CTA Assessment and Plan Assessment Anesthesia Assessment: Anesthesia Plan Discussed Final Anesthetic Review NPO: Yes ASA Class: III Final Preanesthetic Review: Meds/Hiramgs Chart Reviewed and Consent Obtained/Reviewed Patient Risk: Intermediate Procedure Risk: Intermediate Anesthetic Plan Anesthetic Plan: GA Disposition: Standard PACU
[2025-02-20 10:09] LABS: Hemoglobin A1C 149.6175 umol/L; Total Hemoglobin (HGBA1C) 3689.3308 umol/L
[2025-02-20 10:30] LABS: INTERNATIONAL NORM RATIO 1.1 (0.9-1.1); Prothrombin Time 12.4 SEC (10.9-12.4)
[2025-02-20 10:31] LABS: Alanine Aminotransferase 27 U/L (0-31); Albumin Level 4.3 g/dL (3.5-5.0); Alkaline Phosphatase 105 U/L (39-117); Anion Gap 12 (12-20); Aspartate Amino Transferase 37 U/L (5-31); Blood Urea Nitrogen 17 mg/dL (9-16); Calcium 10.3 mg/dL (8.4-10.2); Carbon Dioxide 31 mmol/L (22-29); Chloride 104 mmol/L (96-108); Cholesterol 185 mg/dL (<200); Creatinine Clr Calc Pharmacy 88.1; Estimated Glomerular Filt Rate > 60; HDL Cholesterol 39 mg/dL (>40); Potassium 5.0 mmol/L (3.3-5.1); Sodium 142 mmol/L (135-145); Total Protein 7.9 g/dL (6.5-8.0); Triglycerides 106 mg/dL (<150)
[2025-02-20 10:33] LABS: Partial Thromboplastin Time 30.2 SEC (26.7-34.1)
[2025-02-24] VITALS (21 sets, daily range): BP systolic 128–162; BP diastolic 72–99; PULSE 71–90; RESP 12–19; TEMP 36.2–36.8; O2SAT 92–99; BMI 33.1
[2025-02-24] MEDS: Lactated Ringers 1,000 ML 999 ML IV (06:13)
[2025-02-24] MEDS: Lactated Ringers 1,000 ML 100 ML IVCONT ×3 (06:13→22:08)
[2025-02-24] MEDS: Aprepitant 32 MG/4.4 ML VIAL IVPUSH (06:50)
--- NOTE | 2025-02-24 07:40 | MHC.SHP ---
Pre-Procedural Eval Section A - 24 Hr Update-Section A only Date of Service: 02/24/25 The patient is an INPATIENT: Yes The patient has been examined within 24 hours of the surgical procedure. The History & Physical has been completed within 30 days and I have reviewed it.: No Section B - Complete if H&P > 30 days Chief Complaint: Obesity, unspecified Relevant Family History (Specify if Yes): No Relevant Social History: None Present Medications: None Medical History: No relevant PMH History of Previous Operations: No relevant previous surgery Allergies: Allergies Allergy/AdvReac Type Severity Reaction Status Date / Time No Known Allergies Allergy Verified 02/11/25 12:51 Review of Systems Sugical H&P ROS: Negative: Constitution, Cardiovascular, Respiratory, Neurological, Psychiatric, Hem-Onc, Allergic/Immunologic, Gastrointestinal, Genitourinary, Musculoskeletal, Integumentary, Endocrine and Eyes/Ears/Nose/Throat Exam Surgical H&P Exam: Normal: HEENT, Normal: Heart, Normal: Lungs, Normal: Extremities, Normal: Abdomen, Normal: Skin and Normal: Neurological Plan Diagnosis/Plan: Unchanged I have reviewed the history and physical and performed a pertinent physical examination on my patient. No changes have occurred unless specified. Time Spent With Patient Time: Total time managing care of this patient today ____ minutes.
[2025-02-24 08:55] LABS: Glucose, Whole Blood 131 mg/dL (60-115)
--- NOTE | 2025-02-24 10:03 | P.BOP_ITS ---
Brief Operative Note Date of Service: 02/24/25 Pre-op diagnosis: Severe obesity with comorbidities (see below) Post-op diagnosis: same (& abdominal adhesions) Procedure: INITIAL PATIENT BMI ON PRESENTATION AT OUR OFFICE: 35.2 kg/m2 LAST BMI BEFORE SURGERY: 35.2 kg/m2 COMORBIDITIES: sleep apnea on CPAP, GERD, asthma, hypertension on medications, non-insulin dependent diabetes on medications PROCEDURE: Esophago-gastroscopy, laparoscopic lysis of adhesions, laparoscopic sleeve gastrectomy and laparoscopic gastropexy INDICATIONS: This is a 64 year-old female who was electively scheduled for laparoscopic, possibly open sleeve gastrectomy. The risks and complications of the procedure were discussed with the patient in advance, particularly the possibility of ; pulmonary embolism; staple line leak; bleeding; GERD; cardiac, pulmonary, or renal complications; as well as long-term problems such as insufficient weight loss, vitamin deficiency, strictures, or ulcers. The patient understood all the risks, and was in agreement to proceed with surgery. DESCRIPTION OF PROCEDURE: After informed consent was obtained from the patient, the patient was given preoperative antibiotics, and was transferred to the operating room. After s uccessful induction of general anesthesia, pneumatic compression devices were placed on both lower extremities. An upper endoscopy was performed next. The oropharynx and esophagus appeared to be within normal limits. There was no diaphragmatic hernia present. The stomach was entered. Then after all fluid and air were suctioned and the stomach was fully decompressed, the scope was withdrawn and secured in the mid esophagus. The patient was then prepped and draped in the usual sterile manner, and abdominal access was established at the right upper quadrant with the Ruth technique. A 12 mm blunt port was inserted, and the abdomen was insufflated with CO2 to a pressure of 15 mmHg. Under direct visualization, additional ports were placed, specifically two 5 mm Versi-step ports to the left upper quadrant, and a 5 mm Versi-Step port to the right upper quadrant. 1% lidocaine plain was used to infiltrate all port sites as well as all fascia defects. There were adhesions in the abdomen from previous surgeries involving the omentum and the left anterior abdominal wall. Those were lysed completely with the ultrasonic device. Following that, the patient was placed in a steep reverse Trendelenburg position. An additional 5 mm port was placed to the right flank for the Mediflex retractor that was used to retract the left lobe of the liver. The gastro-esophageal fat pad was opened with the ultrasonic device (Thunderbeat, Olympus) and the anterior esophagus and hiatus were exposed. The angle of His was opened with the ultrasonic device the fundus of the stomach from any diaphragmatic and splenic attachments. I then opened the gastrocolic ligament between the transverse colon and the greater curvature of the stomach with the ultrasonic device to enter the lesser sac and facilitate the ligation of the short gastric vessels. I started at a mid-point along the greater curvature and using the Thunderbeat, all short gastric vessels were divided all the way to the angle of His until the left apolonia was completely dissected at its entirety. I then divided the gastro-colic ligament distally to a distance of about 3-4 cm proximal to the pylorus. There were extensive congenital adhesions between the pancreas and posterior gastric wall. Those were lysed completely with the ultrasonic device. Adhesiolysis took approximately 45 min to complete. The stomach was then divided transversely with one Endo MARTIN-45 purple and four MARTIN-6s0 articulating purple loads using the SIGNIA stapler and loads. Every effort was made that the gastric sleeve had a tubular shape and an even caliber throughout. Once the sleeve resection was completed, the staple line of the gastric sleeve was reinforced with Hemoclips. The resected stomach was retrieved without difficulty from the Ruth port. A gastropexy was then performed in order to prevent postoperative GERD and partial gastric volvulus. Several interrupted 2.0 Surgidac sutures were placed between the sleeve's staple line and the previously divided greater omentum and gastro-colic ligament using the Endo-Stitch device. ?An upper endoscopy was performed. There was no narrowing at the GE junction. The scope was easily advanced all the way to the pylorus which was clearly visualized. There was no narrowing anywhere and the sleeve's caliber was even throughout. The sleeve's staple line was inspected and there was no evidence of ischemia, bleeding or dehiscence. At that point the gastroscope was withdrawn from the patient?s mouth while we were decompressing the bowel and the stomach from any remaining air. I looked into the lesser sac to see how the sleeve was situating and it was situating well. There was no bleeding from the staple line, spleen, or short gastric vessels. The Mediflex retractor was removed, and the undersurface of the liver was inspected and there was no bleeding. The patient was placed in supine position. I closed the fascial defect of the 12 mm port site with a figure of eight #1 Polysorb suture. Then 30cc Ropivacaine plain with 10 mg of Dexamethasone were used to infiltrate the fascial closure as well as all skin incisions. At this point, the abdomen was deflated, all ports were removed under direct vision, and no bleeding was noted from any of the port sites. The skin incisions were irrigated with saline and were closed with 4-0 absorbable monofilament sutures. Steri-Strips and OpSites were used to cover all incisions. The patient was extubated and was transferred in stable condition to the recovery room for further care. I was present and performed all barker parts of the procedure. Ms. Mack was the veterinarian assistant. There were no residents to assist with this case. Matt Huang MD, PhD, FACS Surgeon: Wai Huang MD Anesthesia: GETA, local and other (TAP block) Was an Netsuite Developer used for this Procedure?: Yes Netsuite Developer: Doris Mack Estimated blood loss (mL): 10 IV fluids (mL): 2,100 Urine output (mL): 0 (No [place] to record output) Pathology: other (1) Stomach, 2) Gastro-esophageal fat pad) Condition: stable Disposition: PACU
--- NOTE | 2025-02-24 10:03 | P.DS_ITS ---
DS: Providers Provider Date of Service: 02/25/25 Date of discharge: 02/25/25 Primary care physician: ASIA Garza DS: Summary Hospital Course Hospital Course: ADMITTING DIAGNOSIS: obesity, GERD, HTN, NIDDM, WENDIE on CPAP DISCHARGE DIAGNOSIS: same, s/p laparoscopic sleeve gastrectomy and gastropexy PAST SURGICAL HISTORY:? Hx of tonsillectomy Hx of appendectomy History of partial mastectomy of left breast History of hysterectomy History of laparoscopic cholecystectomy Hx of colonoscopy History of esophagogastroduodenoscopy (EGD) (10/10/24) PROCEDURE: upper endoscopy, laparoscopic sleeve gastrectomy and gastropexy DISCHARGE SUMMARY: History of Present Illness: The patient is a?64 year-old woman with a BMI of?33.1 kg/m2 and associated co- morbidities as described above. The patient had extensive work-up, lost?13 lbs preoperatively and was electively scheduled for laparoscopic, possible open sleeve gastrectomy and gastropexy. Risks and complications of the surgery were discussed with the patient in advance, particularly the possibility of , pulmonary embolism, anastomotic leak, bleeding, bowel injury, GERD, cardiac, renal or pulmonary complications. The patient understood all the risks and was in agreement with the surgical plan. Hospital Course: The patient underwent an uneventful laparoscopic sleeve gastrectomy with gastropexy on the day of admission. Postoperatively, the patient was transferred to the surgical floor. The patient received IV acetaminophen and IV Dilaudid for pain control. Patient was started on bariatric phase 1 diet POD #0. On postoperative day one, the patient was feeling well without nausea, vomiting, fevers, or tachycardia. The patient had some mild incisional pain and the abdomen was soft.? ? On the morning of postoperative day one, the patient was continued on 1 ounce of water or ice every half hour. During the day, the patient did fairly well, having some incisional pain, but able to ambulate adequately and to tolerate liquids well. Since the patient is doing well, we decided that the patient was ready to be discharged. The patient was given instructions to follow-up in office next week and to call the office for any fever over 101, persistent abdominal pain, nausea, vomiting, GERD, symptoms of DVT such as calf tenderness, or leg swelling, or pulmonary embolism such as chest pain or shortness of breath.? The patient was also instructed to drink 40-60 ounces of liquids per day using the 1-ounce cups. The patient had been given prescriptions for Tylenol for pain, Zofran prn for nausea, and pantoprazole and carafate previously. The patient was encouraged to ambulate and use the incentive spirometer. The patient was allowed to shower, but no baths, and encouraged to stay active at home. All of these instructions were given to the patient personally. All questions were answered and the patient understood all instructions, the instructions were also given to the patient in print. Time Attestation Discharge Coordination Time (in mins): 30 Quality: Safe Use of Opioids Does Pt have an Active Cancer Diagnosis on the Problem List?: No Quality: Stroke Does the patient have a stroke diagnosis?: No Physical Exam Vital Signs: Vital Signs: Last Vital Signs Temp 97.3 F 02/24/25 09:47 Pulse 85 02/24/25 09:57 Resp 19 02/24/25 09:57 BP 162/93 H 02/24/25 09:57 Pulse Ox 99 02/24/25 09:57 O2 Del Method Simple Mask 02/24/25 09:57 O2 Flow Rate 6 02/24/25 09:57 BMI result Body Mass Index 33.1 DS: Data Data Completed and Pending Pending studies at discharge: Pending at discharge 02/24/25 08:55 Surgical [PTH] Routine Labs on day of discharge: Laboratory Results - last 24 hr 02/24/25 06:19 POC Glucose 131 H Discharge Plan Discharge Anticipated Discharge Date/Time: 02/25/25 09:06 Patient Disposition: Home, Self-Care Discharge Diagnosis: s/p laparoscopic sleeve gastrectomy with gastropexy Referrals: Asia Gonzales PA [Primary Care Provider, Internal Medicine] - 1 Week Discharge Medications: Continued albuterol sulfate 90 mcg/actuation HFA aerosol inhaler 1 puff inhalation Q4H PRN (Reason: wheezing) duloxetine 60 mg capsule,delayed release(DR/EC) 60 mg PO DAILY pantoprazole 40 mg tablet,delayed release (DR/EC) 40 mg PO DAILY Qty: 90 0RF Held irbesartan-hydrochlorothiazide 300-12.5 mg tablet 1 tab PO DAILY Hold Instructions: Resume on 02/26/25. Check your blood pressure every morning as soon as you wake up and send it to Dr. Huang. Do no take the blood pressure medication if the blood pressure is below 120/70. Wait every day to hear back from Dr. Huang before you take the medication. Discontinued Mounjaro 5 mg/0.5 mL pen injector 5 mg subcut TH famotidine 20 mg tablet 20 mg PO BEDTIME Discharge Orders: Discharge Order (Routine); Ordered 02/25/25 Ordered By: Wai Huang Activity on Discharge: No heavy lifting Stand Alone Forms: Patient Portal Discharge page Print Language: Lithuanian Care Plan Goals: weight loss Health Concerns: obesity Plan of Treatment: No tub baths, sex or returning to work until discussed at first post op appointment. No alcohol, tobacco or illegal drug use. Continue to use incentive spirometer hourly while awake. Walk in home for 5- 10 minutes every 2 hours during the first week. Wear abdominal binder with activity. Follow all meal plan instructions from your bariatric surgeon. Review bariatric handbook and call with any questions. Discharge Instructions 1. Please call your doctor or come back to the emergency room should any new symptoms arise. 2. Activity: abstain from alcohol,? limited stair climbing, no bending, no driving, no exercise, no illicit substances, no lifting, no sex, no tub bath, no work. 4. Diet: follow your bariatric surgeon's recommendations for advancing diet. 5. Dressing Change/Wound Care: Your incisions are covered with waterproof dressings. You can shower with these and pat dry. Do not rub over dressings or incisions. If the area is tender, you may apply an ice pack for short intervals (no more than 20 minutes on, followed by at least 20 minutes off). Do not apply heat. Do not use creams, lotions, or topical antibiotics unless instructed to do so by your surgeon. 6. Call your doctor if: - Your temperature exceeds 101.5 F - You experience excessive pain or swelling - You have an unexpected reaction to medication - You have excessive bleeding - You experience continued vomiting/nausea - Your incision begins to separate - Your incision shows signs of infection such as increased redness, swelling, excessive pain, heat, or drainage (light blood or clear fluid is normal) General instructions: No lifting greater than 10 lbs for the next 6 weeks. No driving within 24 hours of taking narcotic pain medications. If you do not move your bowels in the next 2 days, please take milk of magnesia over the counter. Please follow the post op diet and do not advance your diet until instructed by your surgeon or until you are seen in the office in about 1 week. Please walk around your home every hour or two to prevent blood clots from forming in your legs. You do not need to wake from sleeping to walk. Please sleep in a bed or couch to prevent kinking at the hips and knees. Please take your incentive spirometer (your lung police communications dispatcher) home with you and use it for the next few days to prevent pneumonias. You may shower; no hot tubs, baths or swimming pools. Please make sure you are consuming 40-60 ounces of total fluids per day. Avoid all carbonation. Please call the office with any questions or concerns such as increasing abdominal pain, fever, chills, shortness of breath, chest pain, leg pain or swelling, or redness or drainage from your incisions. Do not hesitate to contact the office with any questions at . The patient's medical history has been reviewed and they are considered low risk for post op DVT and therefore DVT prophylaxis is not considered necessary. Travel after surgery was reviewed. The patient has not disclosed any travel plans during the first 30 days after surgery and they have been advised that within the first 30 days after surgery any bus, plane, train or car travel over 2 hours in duration is contraindicated due to the possibility of developing blood clots from immobility. Any travel, needs to include periods of ambulation of 10 minutes in duration every 2 hours.? The patient was instructed to discuss any plans for travel during this period with their bariatric surgeon. Assessment: s/p laparoscopic sleeve gastrectomy with gastropexy Discharge Date/Time: 02/25/25 09:50
--- NOTE | 2025-02-24 10:09 | P.PNGS_ITS ---
Subjective Subjective Date of Service: 02/25/25 Interval history: Feels well. Mild incisional pain. She is tolerating phase 1 bariatric diet Physical Exam 2 Vital Signs: Vital Signs: Last Vital Signs Temp 97.3 F 02/24/25 09:47 Pulse 85 02/24/25 10:02 Resp 19 02/24/25 10:02 BP 161/95 H 02/24/25 10:02 Pulse Ox 99 02/24/25 10:02 O2 Del Method Simple Mask 02/24/25 10:02 O2 Flow Rate 6 02/24/25 10:02 BMI result Body Mass Index 33.1 GI: Inspection: Yes normal to inspection and Yes incision (clean, dry and intact) Palpation (GI): Soft to palpation Extrem: Right lower extremity: normal to inspection (no calf tenderness) L eft lower extremity: normal to inspection (no calf tenderness) Objective Data Active Medications Albuterol Sulfate (Albuterol Sulfate (0.083%) 2.5 Mg/3 Ml Vial.Neb) 2.5 mg INHALE ONCE PRN PRN Reason: Shortness of Breath/Wheezing Albuterol/Ipratropium (Albuterol/Iprat 2.5/0.5mg 3 Ml Ampul.Neb) 3 ml INHALE ONCE PRN PRN Reason: Bronchospasm/wheezing Stop: 02/24/25 14:19 Fentanyl (Fentanyl Citrate/Pf 100 Mcg/2 Ml Vial) 25 mcg IVPUSH Q5M PRN PRN Reason: Pain, Moderate to Severe (Pain Scale 4-10) Stop: 02/24/25 14:19 Haloperidol Lactate (Haloperidol Lactate 5 Mg/Ml Vial) 1 mg IVPUSH ONCE PRN PRN Reason: intractable nausea Stop: 02/24/25 14:19 Hydromorphone HCl (Hydromorphone Hcl 0.5 Mg/0.5 Ml Syringe) 0.25 mg IVPUSH Q5M PRN PRN Reason: Pain, Moderate to Severe (Pain Scale 4-10) Stop: 02/24/25 14:19 Lactated Ringer's (Lr) 1,000 mls @ 100 mls/hr IVCONT .Q10H ELISABET Last Admin: 02/24/25 06:13 Dose: 100 mls/hr Documented By: ABE Naloxone HCl (Naloxone Hcl 0.4 Mg/Ml Vial) 0.04 mg IVPUSH Q5M PRN PRN Reason: Excessive sedation or RR < 8 Ondansetron HCl (Ondansetron Hcl 4 Mg/2 Ml Vial) 4 mg IVPUSH ONCE PRN PRN Reason: Nausea and Vomiting Stop: 02/24/25 14:19 Oxycodone HCl (Oxycodone Hcl Immed Release 5 Mg Tablet) 5 mg PO ONCE PRN PRN Reason: Pain, Moderate(Pain Scale 4-6) if no IV Access Stop: 02/24/25 14:19 Labs 02/25/25 05:22 02/25/25 05:22 Labs: Laboratory Results - last 24 hr 02/24/25 06:19 POC Glucose 131 H Procedures Date of Service Date of Service: 02/25/25 Progress Note: A&P Assessment and plan (1) Obesity: Status: Acute (2) BMI 35.0-35.9,adult: Status: Acute (3) Non-insulin dependent type 2 diabetes mellitus: Status: Acute (4) Hypertension: Status: Acute (5) GERD (gastroesophageal reflux disease): Status: Acute (6) Sleep apnea treated with continuous positive airway pressure (CPAP): Status: Acute (7) Asthma: Status: Acute (8) Congenital intra-abdominal adhesions: Status: Acute (9) Intra-abdominal adhesions: Status: Acute (10) S/P laparoscopic sleeve gastrectomy: Status: Acute Assessment and Plan: s/p laparoscopic sleeve gastrectomy, lysis of adhesions and gastropexy Doing well Will check am labs and if OK the patient will be discharged home Time Spent With Patient Time: Total time managing care of this patient today ____ minutes. Quality Stroke Does the patient have a stroke diagnosis?: No VTE Prior VTE?: No VTE Risk Level:: Surgical - moderate VTE Device Contraindication: N/A - Device Ordered VTE Drug Contraindication: Treatment Not Indicated
[2025-02-24 10:45] LABS: Hematocrit 40.3 % (37.0-47.0); Hemoglobin 13.7 g/dl (12.0-16.0)
[2025-02-24 10:57] LABS: Anion Gap 11 (12-20); Blood Urea Nitrogen 19 mg/dL (9-16); Calcium 9.0 mg/dL (8.4-10.2); Carbon Dioxide 26 mmol/L (22-29); Chloride 105 mmol/L (96-108); Creatinine Clr Calc Pharmacy 98.9; Estimated Glomerular Filt Rate > 60; Potassium 3.6 mmol/L (3.3-5.1); Sodium 138 mmol/L (135-145)
--- OUTSIDE RECORDS SUMMARY | 2025-02-24 13:16 | XMS_ITS ---
Author Organization [facility] Address [address] [place] [address] Care Team Providers Care Board Certified Orthodontist Name Role Phone Asia Gonzales Primary Care Provider [phone] Asthma Program Status:Enrolled (Active) Start date:10/21/2024 Enrollment date:10/21/2024 Case Team Name Relationship Phone Maurice Gold PharmD(Responsible Staff) [phone] Continued Care and Services Coordination
--- OUTSIDE RECORDS SUMMARY | 2025-02-24 13:16 | XMS_ITS | Clinical Summary ---
Author Organization [facility] Address [address] [place] [address] Care Team Providers Care Associate Professor Of Media Arts Name Role Phone Asia Gonzales Primary Care Provider [phone] Source Comments PLEASE NOTE, if this patient [...] cancer 07/10/2024 Type 2 diabetes mellitus[facility] current use of insulin 07/10/2024 Fibromyalgia 07/10/2024 WENDIE (obstructive sleep apnea) 07/10/2024 Moderate persistent asthma without complication 07/10/2024 Essential hypertension 07/10/2024 History of uterine [...] Description 02/26/2025 2:00 PM EDT Office Visit [facility] [address] [place] [phone] Maurice Gold, PharmD [address] [place] [address] 03/23/2025 9:00 AM EDT Office Visit [facility] [address] [place] [phone] Deidra Zaragoza [address] [place] [address] Health Maintenance Due Date Last Done Comments Anxiety Screening 1960 Diabetes Foot Exam 1960 Medicare Annual Wellness Visit 1978 Imm-DTaP/Tdap/Td (1 - Tdap) 1979 Imm-Pneumococcal 50+ (1 of 2 - PCV) 1979 Breast Cancer Screening (Mammogram) 2000 CT Colonography 2005 Colonoscopy 2005 Colorectal Cancer Screening 2005 FIT/gFOBT 2005 Fecal DNA 2005 Flexible Sigmoidoscopy 2005 Imm-Zoster, Recombinant (1 of 2) 2010 Jac-WGDPM-20 (1 - season) 2025 Imm-Influenza (#1) 2025 [...] MEDICATIONS SCANNED DOCUMENT 12/02/2024 3:00 AM EDT INFORMATION CLERK CASHIER REPORT 3:00 AM EDT HIV 1/2 AG & AB W/RFLX (4TH GEN) Routine 09/01/2024 11:52 AM EDT COMPREHENSIVE METABOLIC PANEL Routine 09/01/2024 11:52 AM EDT Type 2 diabetes mellitus without complication, without long-term current use of insulin ([facility]) Class 2 severe obesity due to excess calories with serious comorbidity and body mass index (BMI) of 35.0 to 35.9 in adult ([facility]) HEPATITIS C AB W/RFLX HCV RNA, QT, RT PCR Routine 09/01/2024 11:52 AM EDT LIPID PANEL Routine 09/01/2024 11:52 AM EDT Type 2 diabetes mellitus without complication, without long-term current use of insulin ([facility]) MICROALBUMIN/CREATININE RATIO, URINE, RANDOM Routine 09/01/2024 11:52 AM EDT Type 2 diabetes mellitus without complication, without long-term current use of insulin ([facility]) Class 2 severe obesity due to excess calories with serious comorbidity and body mass index (BMI) of 35.0 to 35.9 in adult ([facility]) HEMOGLOBIN GLYCOSYLATED A1C Routine 09/01/2024 11:52 AM EDT Type 2 diabetes mellitus without complication, without long-term current use of insulin ([facility]) Class 2 severe obesity due to excess calories with serious comorbidity and body mass index (BMI) of 35.0 to 35.9 in adult ([facility]) from Last 3 Months or Most Recently Relevant to Health Maintenance Results * MEDICATIONS SCANNED DOCUMENT (12/02/2024 3:00 AM EDT) 12/02/2024 3:00 AM EDT Chnd Provider Default SCAN MEDS OTHER ORDERS Fin al Result * INFORMATION CLERK CASHIER REPORT (11/17/2024 3:00 AM EDT) 11/17/2024 3:00 AM EDT Sruthi Figueredo PA-C SCAN PROCEDURES Final Result * HEPATITIS C AB W/RFLX HCV RNA, QT, RT PCR (09/01/2024 11:52 AM EDT) Pathologist [facility] HEPATITIS C ANTIBODY NON-REACT GENEVA NON-REACT GENEVA [facility] Comment: HCV antibody was non-reactive. There is no laboratory evidence of HCV infection. In most cases, no further action is required. However, if recent HCV exposure is suspected, a test for HCV RNA (test code 25183) is suggested. For additional information please refer to http://education.[employer].com/faq/DMR59g9 (This link is being provided for informational/ educational purposes only.) 09/01/2024 11:5 2 AM EDT 09/01/2024 11:54 AM EDT Narrative [employer] - 09/02/2024 6:41 PM EDT FASTING:YES Asia [facility] - BLOOD DRAW Edited Result - Final [employer] [address] [place] [id number], [employer] [address] [phone] * HIV 1/2 AG & AB W/RFLX (4TH GEN) (09/01/2024 11:52 AM EDT) Pathologist [facility] HIV AG/AB, 4TH GEN NON-REAC TIVE NON-REAC TIVE [facility] Comment: HIV-1 antigen and HIV-1/HIV-2 antibodies [...] purpose. For additional information please refer to http://education.[employer].com/faq/KCY874 (This link is being provided for informational/ educational purposes only.) The performance of this assay has not been clinically validated in patients less than 2 years old. 09/01/2024 11:5 2 AM EDT 09/01/2024 11:54 AM EDT Verena [employer] - 09/02/2024 6:41 PM EDT FASTING:YES Asia [facility] - BLOOD DRAW Final Result [employer] [address] [address], [facility] [address] [place] [phone] * (ABNORMAL) MICROALBUMIN/CREATININE RATIO, URINE, RANDOM (09/01/2024 11:52 AM EDT) CREATININE, RANDOM URINE 209 20 - 275 mg/dL [facility] MICROALBUMIN 7.0 mg/dL [facility] Comment: Reference Range Not established MICROALBUMIN/CREA TININE RATIO, RANDOM URINE 33(H) <30 mg/g creat [facility] Comment: The ADA defines abnormalities in albumin [...] AM EDT 09/01/2024 11:54 AM EDT Narrative [employer] - 09/02/2024 6:41 PM EDT FASTING:YES us [facility] URINE AMBULATORY Final Resul t Performing Organization Address [facility] Co de Phone Number [employer] [address] [address], [employer] [address] [phone] * (ABNORMAL) HEMOGLOBIN GLYCOSYLATED A1C (09/01/2024 11:52 AM EDT) HEMOGLOBIN A1C 6.4(H) <5.7 % of total Hgb [employer] [facility] Comment: For someone without known diabetes, a [...] AM EDT 09/01/2024 11:54 AM EDT Narrative [employer] [facility] - 09/02/2024 6:41 PM EDT FASTING:YES us [facility] - BLOOD DRAW Edited Result - Final Performing Organization Address City/[facility] Co de Phone Number [employer] [address] [address], [employer] [address] [phone] * (ABNORMAL) LIPID PANEL (09/01/2024 11:52 AM EDT) CHOLESTEROL, TOTAL 175 <200 mg/dL [employer] [facility] HDL CHOLESTEROL 44(L) > OR = 50 mg/dL [facility] TRIGLYCERIDES 107 <150 mg/dL [employer] [facility] LDL-CHOLESTEROL 110(H) 99 mg/dL (calc) [facility] Comment: Reference range: <100 Desirable range <100 mg/dL for primary prevention; <70 mg/dL for patients with CHD or diabetic patients with > or = 2 CHD risk factors. LDL-C is now calculated using the Enrique calculation, which is a validated novel method providing better accuracy than the Friedewald equation in the estimation of LDL-C. Juan ALTAMIRANO et al. STEVIE. 2013;310(19): 5256-0809 (http://education.[employer]/faq/VCI954) CHOL/HDLC RATIO 4.0 <5.0 (calc) [facility] NON-HDL CHOLESTEROL 131(H) <130 mg/dL (calc) [facility] Comment: For patients with diabetes plus 1 major ASCVD risk factor, treating to a non-HDL-C goal of <100 mg/dL (LDL-C of <70 mg/dL) is considered a therapeutic option. Blood Blood / Unknown 09/01/2024 1 1:52 AM EDT 09/01/2024 11:54 AM EDT Narrative [employer] - 09/02/2024 6:41 PM EDT FASTING:YES Asia [facility] - BLOOD DRAW Final Result [employer] [address] [place] [address], [facility] [address] [place] [phone] * (ABNORMAL) COMPREHENSIVE METABOLIC PANEL (09/01/2024 11:52 AM EDT) GLUCOSE 204(H) 65 - 99 mg/dL [facility] Comment: Fasting reference interval For someone without known diabetes, a glucose value >125 mg/dL indicates that they may have diabetes and this should be confirmed with a follow-up test. UREA NITROGEN (BUN) 15 7 - 25 mg/dL [facility] CREATININE (blood) 0.75 0.50 - 1.05 mg/dL [facility] EGFR 89 > OR = 60 mL/min/1. 73m2 [facility] BUN/CREATININE RATIO SEE NOTE: [facility] Comment: Not Reported: BUN and Creatinine are within reference range. SODIUM 139 135 - 146 mmol/L [facility] POTASSIUM 4.8 3.5 - 5.3 mmol/L [facility] CHLORIDE 98 98 - 110 mmol/L [employer] [facility] CARBON DIOXIDE 25 20 - 32 mmol/L [employer] [facility] CALCIUM 10.1 8.6 - 10.4 mg/dL [employer] [facility] PROTEIN, TOTAL 8.2(H) 6.1 - 8.1 g/dL [employer] [facility] ALBUMIN 4.4 3.6 - 5.1 g/dL [employer] [facility] GLOBULIN 3.8(H) 1.9 - 3.7 g/dL (calc) [employer] [facility] ALBUMIN/GLOBULI N RATIO 1.2 1.0 - 2.5 (calc) [employer] [facility] BILIRUBIN, TOTAL 0.9 0.2 - 1.2 mg/dL [employer] [facility] ALKALINE PHOSPHATASE 88 37 - 153 U/L [employer] [facility] AST 31 10 - 35 U/L [employer] [facility] ALT 32(H) 6 - 29 U/L [employer] [facility] Blood Blood / Unknown 09/01/2024 1 1:52 AM EDT 09/01/2024 11:54 AM EDT Narrative [employer] [facility] - 09/02/2024 6:41 PM EDT FASTING:YES us [facility] - BLOOD DRAW Edited Result - Final [facility] [address] [address], [employer] [facility] [address] [place] [address] from Last 3 Months or Most Recently Relevant to Health Maintenance [place] Care Teams Associate Professor Of Media Arts Relationship Specialty Start Date End Date Asia Gonzales PA [facility] [place] [address] PCP - General Primary Care 07/10/24
[2025-02-24 14:06] LABS: Glucose, Whole Blood 145 mg/dL (60-115)
--- NOTE | 2025-02-24 15:20 | PHA.MEDREC ---
Addendum entered by Julio Camacho RPh 02/24/25 15:35: MED REC REVIEWED BY [facility] Original Note: Pharmacy Consult ? Medication Reconciliation Pharmacy has completed the medication reconciliation. Spoke with pt and pt son at bedside (he was able to interpret) and they were able to confirm pt medications. Pt taking Irbesartan-HCTZ 300-125mg once daily, pt is taking Mounjaro 5mg once a week and confirmed she took it last 01/15 due to the surgery today. Pt nor son are sure if pt taking Sucralfate oral solution now or if she should be after the surgery; claims shows it was just filled 02/11 for . Pt has not taken any medications in about 2 weeks due to her Dr telling her to stop 1 medication but pt misunderstood them and stopped all the medications.
[2025-02-24 16:12] LABS: Glucose, Whole Blood 175 mg/dL (60-115)
[2025-02-24 17:48] LABS: Glucose, Whole Blood 169 mg/dL (60-115)
[2025-02-24] MEDS: 0.9 % Sodium Chloride Flush 3 ML SYRINGE IVFLUSH (19:23)
[2025-02-24 21:07] LABS: Glucose, Whole Blood 148 mg/dL (60-115)
[2025-02-25] VITALS: BP 134/69; PULSE 79; RESP 17; TEMP 36.8
[2025-02-25 01:31] LABS: Glucose, Whole Blood 124 mg/dL (60-115)
[2025-02-25 03:35] VITALS: BP 117/64; PULSE 65; RESP 17; TEMP 36.4; O2SAT 93
[2025-02-25 05:44] LABS: Glucose, Whole Blood 119 mg/dL (60-115)
[2025-02-25 06:22] LABS: MANUAL DIFF FLAG NO
[2025-02-25 07:06] LABS: Hematocrit 40.6 % (37.0-47.0); Hemoglobin 13.5 g/dl (12.0-16.0); Imm Gran Abs Auto 0.05 X10*3/uL (0.00-0.03); Imm Gran Pct Auto 0.5 % (0.0-0.4); Lymphocytes Absolute Auto 1.2 X10*3/uL (1.2-4.9); Mean Corpuscular HGB Conc 33.3 g/dl (31.0-35.0); Mean Corpuscular Hemoglobin 28.5 pg (27.0-33.0); Mean Corpuscular Volume 85.7 fL (80.0-98.0); NRBC Abs Auto 0.000 X10*3/uL (0.0-0.012); NRBC Pct Auto 0.0 /100WBC (0.0-0.2); Platelet Count 253 X10*3/uL (160-400); Red Blood Count 4.74 X10*6/uL (4.20-5.50); White Blood Count 9.4 X10*3/uL (4.8-10.8)
[2025-02-25 07:21] LABS: Anion Gap 13 (12-20); Blood Urea Nitrogen 13 mg/dL (9-16); Calcium 9.4 mg/dL (8.4-10.2); Carbon Dioxide 28 mmol/L (22-29); Chloride 107 mmol/L (96-108); Creatinine Clr Calc Pharmacy 110.6; Estimated Glomerular Filt Rate > 60; Potassium 4.8 mmol/L (3.3-5.1); Sodium 141 mmol/L (135-145)
[2025-02-25 07:52] VITALS: BP 130/66; PULSE 69; RESP 18; TEMP 36.4; O2SAT 94
[2025-02-25 08:01] LABS: Glucose, Whole Blood 114 mg/dL (60-115)
--- NOTE | 2025-02-25 09:42 | MHC.CM.PN ---
IMM 02/25/25 s/p gastric sleeve Lives with son + family She is independent no AD or help with ADLS required requested copy HCP PCP Asia SEPULVEDA home self care son will provide transportation home.
--- NOTE | 2025-02-25 09:52 | HO.POSTANES ---
Post Anesthesia Evaluation Post Anesthesia Evaluation Date of Service: 02/25/25 Vital Signs: Vital Signs Temp Pulse Resp BP Pulse Ox O2 Del Method O2 Flow Rate 02/25/25 07:52 97.5 F 69 18 130/66 94 Room Air 02/25/25 03:35 97.5 F 65 17 117/64 93 Room Air 02/25/25 00:00 98.2 F 79 17 134/69 Room Air 91 Anesthesia: General Mental Status: Awake Pain Control: Satisfactory Nausea/Vomiting: None Hydration: Adequate Anesthesia-Related Issues: No Anes. Related Issues
== END 2025-02-25 09:50 | disposition home or self-care (01) | DRG 620 ==
LOC: HO.SSSA 12:06 → HO.S3 12:10
PROVIDERS: Physician Assistant Surgical; Admitting Provider Surgery; PCP Student in an Organized Health Care Education/Training Program; Visit Provider Surgery
PROC: 0DB64Z3 Excision of Stomach, Percutaneous Endoscopic Approach, Vertical (ICD-10-PCS; CPT 43845; principal; 2025-02-24 07:30)
DX: E66.01 Morbid (severe) obesity due to excess calories (principal); Q43.3 Congenital malformations of intestinal fixation; G47.33 Obstructive sleep apnea (adult) (pediatric); K21.9 Gastro-esophageal reflux disease without esophagitis; J45.909 Unspecified asthma, uncomplicated; I10 Essential (primary) hypertension; E11.9 Type 2 diabetes mellitus without complications; Z85.3 Personal history of malignant neoplasm of breast; Z68.35 Body mass index [BMI] 35.0-35.9, adult; Z79.899 Other long term (current) drug therapy
CPT/HCPCS: 36415; 80048; 80053; 80061; 82947; 83036; 83525; 84443; 85014; 85018; 85025; 85610; 85730; 86140; 86850; 86900; 86901; 88304; 88305; 88307; 88342; A4649; C9145; J0131; J0690; J1100; J1171; J1308; J1630; J2003; J2250; J2371; J2405; J2704; J2795; J3010; J7120

== ENCOUNTER 2025-03-03 10:29 | Outpatient (AMB) | payer MEDICARE, MEDICAID, SELFPAY ==
--- NOTE | 2025-03-03 10:15 | A.OFFWM_ITS ---
Intake Intake Visit Reasons: TV PO LSG 02/24/25 Allergies No Known Allergies Allergy (Verified 02/11/25 12:51) PFSH Medical History (Updated 02/28/25 @ 00:02 by Background Munir) Asthma GERD (gastroesophageal reflux disease) Hypertension Non-insulin dependent type 2 diabetes mellitus BMI 35.0-35.9,adult Sleep apnea treated with continuous positive airway pressure (CPAP) Obesity HX: breast cancer Surgical History (Updated 02/28/25 @ 00:02 by Background Munir) Hx of tonsillectomy Hx of appendectomy History of partial mastectomy of left breast History of hysterectomy History of laparoscopic cholecystectomy Hx of colonoscopy History of esophagogastroduodenoscopy (EGD) (10/10/24) Family History Family/Other Cancer of breast HTN (hypertension) Mother Diabetes HTN (hypertension) Father Diabetes HTN (hypertension) Social History Household Members: Family and Children Household Members Other:: son and [id number]-hgs Housing: Apartment Are you a primary child day care center worker to a significant other at home: No Do you presently have visiting nurse or other home services: No Patient Tobacco Use Status: Never used Tobacco service: No Behavioral Health Assessment Weight Management Therapy Therapy Notes Details Subjective: The patient underwent weight loss surgery on 02/24/2025, with a preoperative weight of 205 lbs. She denies experiencing any pain or difficulties during her recovery and reports tolerating the liquid diet well. Her current regimen includes three 8 oz protein shakes per day and a minimum of 40 oz of fluids (Crystal Light, Propel, or Gatorade). She describes her mood as good and feels energized. The patient is supported by her son, who previously underwent weight loss surgery. She denies experiencing hunger or intrusive food-related thoughts at this time. Objective: The patient attended a behavioral health post-operative follow-up. An emotional check-in was completed to assess recovery, mood, and adjustment. Psychoeducation was provided on post-surgical emotional changes, mindful eating, and distinguishing hunger from cravings. The importance of following Weight Management Program guidelines was reinforced, and resources for ongoing support were offered. Assessment/Response: * Mental status: WNL * Risk reported/identified: None PHQ-9 indicated no active Sx or concerns with depression. Questionnaires PHQ-9 Over the last 2 weeks, how often have you been bothered by any of the following problems? 1. Little interest or pleasure in doing things: not at all 2. Feeling down, depressed, or hopeless: not at all 3. Trouble falling or staying asleep, or sleeping too much: not at all 4. Feeling tired or having little energy: not at all 5. Poor appetite or overeating: not at all 6. Feeling bad about yourself - or that you are a failure or have let yourself or your family down: not at all 7. Trouble concentrating on things, such as reading the newspaper or watching television: not at all 8. Moving or speaking so slowly that other people could have noticed. Or the opposite - being so fidgety or restless that you have been moving around a lot more than usual: not at all 9. Thoughts that you would be better off or of hurting yourself in some way: not at all Total score: 0 Depression Screening Interpretation: Negative Depression Screening Done: Yes 19786 - PHQ-9 Billing: Yes Source: Developed by Drs. Josue Merchant, Shruthi Taylor, Bobby Lan and colleagues, with an educational pablo from [employer]. Assessment & Plan Assessment & Plan (1) Adjustment disorder: Code(s): F43.20 - Adjustment disorder, unspecified (2) Status post bariatric surgery: Code(s): Z98.84 - Bariatric surgery status Plan No safety concerns or issues were identified that would necessitate behavioral health monitoring. The patient declined further visits but is aware of the available behavioral health support if needed in the future. Telehealth Telehealth Telehealth Platform: [employer] Location of provider rendering services: other (Home office. [place], [place]) Location of patient: address on file Patient Identification confirmed using: Name, : Yes Telehealth method: voice only Patient verbally consented to treatment: Yes Patient verbally consented to billing insurance company: Yes Patient informed of any privacy concerns related to visit: Yes Minutes spent on Phone/Video with Pt.: 25 Coding Level of Care Code Established Pt Tele Psytx 30 mins (51084) Patient Type Established Diagnoses Adjustment disorder F43.20 Status post bariatric surgery Z98.84 Additional Codes PHQ-9 - 63612 - PHQ-9 Billing: Yes ([id number]) Time Spent (min) 25
== END 2025-03-03 11:06 | disposition home or self-care (01) ==
LOC: HO.HBST 10:29
PROVIDERS: PCP Student in an Organized Health Care Education/Training Program; Visit Provider Counselor Mental Health
DX: F43.20 Adjustment disorder, unspecified (principal); Z98.84 Bariatric surgery status
CPT/HCPCS: 90832

== ENCOUNTER 2025-03-04 13:30 | Outpatient (AMB) | payer MEDICARE, MEDICAID, SELFPAY ==
--- NOTE | 2025-03-04 13:40 | A.OFFVIS_ITS ---
VS Expanded 03/04/25 13:56 BP 136/83 Blood Pressure Location Rt brachial Blood Pressure Position Sitting Pulse 86 Pulse Source Pulse Oximeter Temp 97.3 F Temperature Source Temporal Artery Scan Pulse Oximetry 98 Oxygen Delivery Method Room Air Height 5 ft 7 in Weight 197 lb 3.2 oz BMI 30.9 Body Fat % 42.3 Body Fat Mass 83.4 Fat Free Mass 113.8 Visceral Fat Rating 11.0 Body Water % 40.8 Body Water Mass 80.4 Muscle Mass/Score 108.0 Basal Metabolic Rate/Score 1,569 Intake Visit Reasons: OV PO LSG 02/24/25 Dry Cleaning Counter Clerk Required: Yes Dry Cleaning Counter Clerk Name: Shay Ace, [id number] Information Interpreted: clinical only Allergies No Known Allergies Allergy (Verified 03/04/25 13:58) Medication List - Last Reconciled 03/04/25 by ASIA Whitman albuterol sulfate 90 mcg/actuation 1 puff inhalation Q4H PRN duloxetine 60 mg PO DAILY irbesartan-hydrochlorothiazide 300-12.5 mg 1 tab PO DAILY Held on 02/25/25. Instructions: Resume on 02/26/25. Check your blood pressure every morning as soon as you wake up and send it to Dr. Huang. Do no take the blood pressure medication if the blood pressure is below 120/70. Wait every day to hear back from Dr. Huang before you take the medication. pantoprazole 40 mg PO DAILY HPI Comments Details: Pt is s/p LSG 02/24/2025, 8 days postop. No pain. No nausea. Tolerating 3 Celebrate shakes, 1 scoop each in 8oz liquid. Hydration is adequate- 40oz. BP- has only needed med one day this week. [facility] Medical History (Updated 02/28/25 @ 00:02 by Ronny Amaral) Asthma GERD (gastroesophageal reflux disease) Hypertension Non-insulin dependent type 2 diabetes mellitus BMI 35.0-35.9,adult Sleep apnea treated with continuous positive airway pressure (CPAP) Obesity HX: breast cancer Surgical History S/P gastric sleeve procedure Hx of tonsillectomy Hx of appendectomy History of partial mastectomy of left breast History of hysterectomy History of laparoscopic cholecystectomy Hx of colonoscopy History of esophagogastroduodenoscopy (EGD) (10/10/24) Family History Family/Other Cancer of breast HTN (hypertension) Mother Diabetes HTN (hypertension) Father Diabetes HTN (hypertension) Social History Household Members: Family and Children Household Members Other:: son and [id number]-xyf Housing: Apartment Are you a primary career orientation teacher to a significant other at home: No Do you presently have visiting nurse or other home services: No 75 years or older and lives alone: No Patient Tobacco Use Status: Never used Tobacco service: No Physical Exam Vital Signs: Last Vital Signs Temp 97.3 F 03/04/25 13:56 Pulse 86 03/04/25 13:56 BP 136/83 03/04/25 13:56 Pulse Ox 98 03/04/25 13:56 Oxygen Delivery Method Room Air 03/04/25 13:56 BMI result Body Mass Index 30.9 Const General: cooperative, comfortable and no acute distress Orientation/consciousness: patient oriented x3 GI Other: soft, nontender, nondistended, steri-strips c/d/i, healing ecchymosis around center port Neuro General: patient oriented x3 Assessment & Plan Assessment & Plan (1) Obesity: Code(s): E66.9 - Obesity, unspecified Category: Medical Qualifiers: Obesity type: due to excess calories Obesity classification: adult class 2 (BMI 35 - 39.9) Serious obesity comorbidity presence: with serious comorbidity Body mass index: BMI 35.0-35.9 Qualified Code(s): E66.812 - Obesity, class 2; E66.01 - Morbid (severe) obesity due to excess calories; Z68.35 - Body mass index [BMI] 35.0-35.9, adult (2) S/P laparoscopic sleeve gastrectomy: Code(s): Z98.84 - Bariatric surgery status Category: Surgical Plan May shower tomorrow but no bath or submersion of abdomen in water. May start exercise in 2 days.? No abdominal exercises x 6 weeks. Abdominal binder for the next 2 weeks with activity or exercise. Continue meal plan per Dr Peng until next f/u in 5 weeks. Reviewed pantoprazole and carafate dosing. Reminded of the pace of drinking 2 mL/min or 1oz per 15 min. Continue to dose BP medication per Dr Peng parameters. Will be emailed link for post op video for review.
[2025-03-04 13:56] VITALS: BP 136/83; PULSE 86; TEMP 36.3; O2SAT 98; BMI 30.9
== END 2025-03-04 14:20 | disposition home or self-care (01) ==
LOC: HO.HBS 13:31
PROVIDERS: Visit Provider Physician Assistant Surgical
DX: E66.01 Morbid (severe) obesity due to excess calories (principal); Z68.35 Body mass index [BMI] 35.0-35.9, adult; Z98.84 Bariatric surgery status
CPT/HCPCS: 99024

== ENCOUNTER → 2025-03-04 13:30 | Outpatient (BNVA) | payer MEDICARE, MEDICAID, SELFPAY | PROVIDERS: Visit Provider Physician Assistant Surgical | DX: E66.9 Obesity, unspecified (principal); Z68.30 Body mass index [BMI] 30.0-30.9, adult; Z98.84 Bariatric surgery status; I10 Essential (primary) hypertension; E11.65 Type 2 diabetes mellitus with hyperglycemia; Z79.84 Long term (current) use of oral hypoglycemic drugs | CPT/HCPCS: 99212 ==

== ENCOUNTER 2025-05-01 10:54 | Outpatient (AMB) | payer MEDICARE, MEDICAID, SELFPAY ==
--- NOTE | 2025-05-01 10:50 | A.OFFVIS_ITS ---
VS Expanded 05/01/25 10:54 Height 5 ft 7 in Weight 184 lb 6 oz BMI 28.9 Intake Visit Reasons: TV PO LSG 02/24/25 Acls Nurse Required: Yes Acls Nurse Name: Shay [id number] Information Interpreted: clinical only Allergies No Known Allergies Allergy (Verified 03/04/25 13:58) Medication List - Last Reconciled 05/01/25 by ASIA Whitman albuterol sulfate 90 mcg/actuation 1 puff inhalation Q4H PRN duloxetine 60 mg PO DAILY irbesartan-hydrochlorothiazide 300-12.5 mg 1 tab PO DAILY Held on 02/25/25. Instructions: Resume on 02/26/25. Check your blood pressure every morning as soon as you wake up and send it to Dr. Huang. Do no take the blood pressure medication if the blood pressure is below 120/70. Wait every day to hear back from Dr. Huang before you take the medication. pantoprazole 40 mg PO DAILY HPI Comments Details: This?is a?64?yo F who is s/p LSG 02/24/2025. Presents for 2 mo post op visit. Weight at last visit on 03/04/2025 was 197.2 pounds; weight today is 184.6 pounds, representing a 12.6 pound weight loss with a BMI today of 28.9.? Starting weight 218lbs on 08/29/2024. No complaints of nausea, emesis, abdominal pain or reflux, or constipation. BP- has not needed meds. Finished carafate, still on PPI. Present meal plan includes: Premier powder shakes- although she notes the milk is cold and does not sit well in her stomach 3 shakes per day each with 1 scoop 1 protein bar may have yogurt or an egg but was not told by Dr Peng to do this Exercise routine includes: 5x/week- treadmill, 330-380 calories burned [facility] Medical History (Updated 05/01/25 @ 11:04 by ASIA Whitman) Asthma GERD (gastroesophageal reflux disease) Hypertension Non-insulin dependent type 2 diabetes mellitus BMI 35.0-35.9,adult Sleep apnea treated with continuous positive airway pressure (CPAP) Obesity HX: breast cancer Surgical History S/P gastric sleeve procedure Hx of tonsillectomy Hx of appendectomy History of partial mastectomy of left breast History of hysterectomy History of laparoscopic cholecystectomy Hx of colonoscopy History of esophagogastroduodenoscopy (EGD) (10/10/24) Family History Family/Other Cancer of breast HTN (hypertension) Mother Diabetes HTN (hypertension) Father Diabetes HTN (hypertension) Social History Household Members: Family and Children Household Members Other:: son and [id number] Housing: Apartment Are you a primary healthcare technician to a significant other at home: No Do you presently have visiting nurse or other home services: No 75 years or older and lives alone: No Patient Tobacco Use Status: Never used Tobacco service: No Telehealth Telehealth Telehealth Platform: Telephone Location of provider rendering services: practice address Location of patient: address on file Patient Identification confirmed using: Name, : Yes Telehealth method: voice only Patient verbally consented to treatment: Yes Patient verbally consented to billing insurance company: Yes Patient informed of any privacy concerns related to visit: Yes Minutes spent on Phone/Video with Pt.: 15 Assessment & Plan Assessment & Plan (1) S/P laparoscopic sleeve gastrectomy: Code(s): Z98.84 - Bariatric surgery status Category: Surgical (2) Overweight: Code(s): E66.3 - Overweight Category: Medical Plan Suggested mixing with room temperative water instead or warming milk slightly in microwave. Pt agreeable to warming. Continue meal plan per Dr Peng. She will ask about officially starting solids at next check in. Continue to monitor BP. Complete PPI this month. RTC in July at previously scheduled appt.
[2025-05-01 10:54] VITALS: BMI 28.9
== END 2025-05-01 11:08 | disposition home or self-care (01) ==
LOC: HO.HBS 10:54
PROVIDERS: PCP Student in an Organized Health Care Education/Training Program; Visit Provider Physician Assistant Surgical
DX: E66.3 Overweight (principal); Z68.28 Body mass index [BMI] 28.0-28.9, adult; Z90.3 Acquired absence of stomach [part of]; Z98.84 Bariatric surgery status
CPT/HCPCS: 99024